=== PATIENT | male | born 1965 | race Caucasian/White ===

== ENCOUNTER 2019-05-01 00:33 | Day surgery (SDC) | payer BC, SELFPAY ==
[2019-04-24 15:08] VITALS: BMI 23.9
[2019-05-01 06:20] VITALS: BP 132/94; PULSE 79; RESP 18; O2SAT 97; BMI 21.9
[2019-05-01] MEDS: LACTATED RINGERS 1,000 ML 150 ML IV CONT (06:49)
--- NOTE | 2019-05-01 06:49 | P.PNAN_ITS ---
Anes - Initial Pre Proc Eval Procedure: Operation Date: 05/01/19 07:30 Proposed Procedures p Screening Colonoscopy - Monico Duetsch MD Date/Time: 05/01/19 06:49 Surgeon: Monico Deutsch MD Pre Op Diagnosis: neoplasm screening Patient Data Age: 54 Gender: M Height: 1.83 m Weight: 73.5 kg Last Vital Signs Pulse 79 05/01/19 06:20 Resp 18 05/01/19 06:20 BP 132/94 H 05/01/19 06:20 Pulse Ox 97 05/01/19 06:20 Allergies Allergy/AdvReac Type Severity Reaction Status Date / Time No Known Allergies Allergy Verified 05/01/19 06:30 Home Medications Medication Instructions Recorded Confirmed Type omeprazole magnesium [Prilosec OTC] 20 mg PO DAILY 04/24/19 05/01/19 History Patient hx anesthesia problems: none Family hx anesthesia problems: none [facility] Past Medical History Medical History (Updated 05/01/19 @ 06:49 by Bmial Herbert DO) GERD (gastroesophageal reflux disease) Surgical History Surgical History (Updated 04/30/19 @ 13:32 by Bimal Herbert DO) History of appendectomy Social History Social History Gender identity (if verbalized by the patient): Male Anes - Eval Final PreProcedure Day of Procedure 05/01/19 06:49 Patient weight: normal Heart: regular rate and rhythm Lungs: clear to auscultation and normal air movement Airway: Mallampati scale class II Neurological: alert and oriented Last oral intake: >/= 8 hours ASA classification: II Emergent: no Anesthetic plan: proceed Anesthesia type and monitoring: general GIVS and standard monitoring Informed Consent: The patient's anesthetic plan and its attendant risks and benefits were discussed with the patient/family/POA. Questions were solicited and answers provided to the satisfaction of the patient/family/POA.
--- NOTE | 2019-05-01 07:30 | WPDGICN ---
Assessment and Plan Additional Plan This is a 54-year-old white male patient seen in evaluation at the request of Dr. Hai Montelongo. Patient presents for screening colonoscopy. Patient's current weight appetite bowel movements are normal. He denies abdominal pain. His bowel habits are normal. He has no blood in his stools. Family history noncontributory. Past medical history is significant for GERD. His previous surgical appendectomy. Medications include omeprazole. No known medical allergies. Physical exam reveals patient to be alert. Vital signs stable. HEENT exam unremarkable. Lungs are clear to auscultation and percussion. Heart is without murmur or extra sounds. Abdominal exam bowel sounds are present soft nontender with no hepatosplenomegaly. Digital external rectal exam is normal. Impression 1. Neoplasia screening. Advised because of age. Plan is for screening colonoscopy GI Consult Note Consult date/time: 05/01/19 07:30 HPI: Eric Levine is a 54 year old male [facility] Past Medical History Medical History (Updated 05/01/19 @ 06:49 by Bimal Herbert DO) GERD (gastroesophageal reflux disease) Surgical History Surgical History (Updated 04/30/19 @ 13:32 by Bimal Herbert DO) History of appendectomy Social History Social History Gender identity (if verbalized by the patient): Male Meds Home Medications and Allergies Home Medications Medication Instructions Recorded Confirmed Type omeprazole magnesium [Prilosec OTC] 20 mg PO DAILY 04/24/19 05/01/19 History Allergies Allergy/AdvReac Type Severity Reaction Status Date / Time No Known Allergies Allergy Verified 05/01/19 06:30 Vital Signs Vital Signs - 24 hr 05/01/19 06:20 Pulse Rate 79 Respiratory Rate 18 Blood Pressure 132/94 H Pulse Oximetry 97
[2019-05-01] MEDS: SIMETHICONE ORAL SUSPENSION 20 MG/0.3 ML 30 ML BOTTLE 0.6 ML IRRIGATION (07:40)
[2019-05-01 07:59] VITALS: BP 137/96; PULSE 78; RESP 17; O2SAT 97
[2019-05-01 08:09] VITALS: BP 130/91; PULSE 77; RESP 18; O2SAT 95
[2019-05-01 08:19] VITALS: BP 141/91; PULSE 74; RESP 21; O2SAT 100
== END 2019-05-01 08:37 | disposition home or self-care (01) ==
PROVIDERS: PCP Family Medicine; Visit Provider Internal Medicine Gastroenterology
PROC: 0DJD8ZZ Inspection of Lower Intestinal Tract, Via Natural or Artificial Opening Endoscopic (ICD-10-PCS; CPT 45378; principal; 2019-05-01 07:30)
DX: Z12.11 Encounter for screening for malignant neoplasm of colon (principal); D12.4 Benign neoplasm of descending colon; D12.5 Benign neoplasm of sigmoid colon; D12.8 Benign neoplasm of rectum; K21.9 Gastro-esophageal reflux disease without esophagitis
CPT/HCPCS: 45385; 88305; J2704; J7120

== ENCOUNTER 2022-06-12 10:16 | Outpatient (CLI) | payer BC, SELFPAY ==
--- NOTE | ~2022-06-12 | XR_ITS ---
XR scoliosis survey DATE: 06/12/2022 10:47 INDICATION: Worsening back pain TECHNIQUE: AP and lateral views of the spine COMPARISON: None FINDINGS: There is 48 degrees levoscoliosis from T7 to T12. There is 45 degrees rotatory dextroscoliosis from T12 to L3. There is thoracic kyphosis. There is degenerative spurring of the thoracic and to a lesser extent lum bar spine. The femoral heads are symmetric in height.. Mild bilateral hip osteoarthritis. IMPRESSION: 48 degrees levoscoliosis from T7 to T12 45 degrees rotatory dextroscoliosis from T12 to L3 Reviewed, dictated and finalized at [facility]. Reviewed, dictated and finalized at location B.
[2022-06-12 10:56] LABS: Cholesterol 176 mg/dL (0-200); HDL Direct 61 mg/dL; Triglycerides 41 mg/dL (<150)
[2022-06-12 11:07] LABS: LDL Cholesterol Direct 86 mg/dL
== END 2022-06-12 10:17 | disposition home or self-care (01) ==
PROVIDERS: PCP Family Medicine; Visit Provider Family Medicine
DX: Z12.5 Encounter for screening for malignant neoplasm of prostate (principal); Z13.220 Encounter for screening for lipoid disorders; M41.84 Other forms of scoliosis, thoracic region
CPT/HCPCS: 36415; 72082; 80061; 84153; G0103

== ENCOUNTER 2023-01-31 14:04 | Outpatient (CLI) | payer BC, SELFPAY ==
--- NOTE | ~2023-01-31 | XR_ITS ---
XR_[id number] 01/31/2023 14:25 Indication: Right knee pain Procedure: 2 views right knee Comparison: No prior studies Findings: No fracture, subluxation or dislocation. There is mild patellofemoral compartment osteoarth ritis. No joint effusion. No foreign bodies. Impression: 1: Mild patellofemoral compartment osteoarthritis. Reviewed, dictated and finalized at location B. 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
--- NOTE | ~2023-01-31 | XR_ITS ---
XR_[id number] 01/31/2023 14:26 INDICATION: Left knee pain and swelling PROCEDURE: 2 views left knee COMPARISON: No prior studies for comparison. FINDINGS: Fracture, dislocation or subluxation is not identified. There is mild tricompartment osteoa rthritis. The soft tissues appear within normal limits. No foreign bodies are identified. IMPRESSION: 1: Mild tricompartment osteoarthritis. Reviewed, dictated and finalized at location B. OW PUMPER
== END 2023-01-31 14:05 | disposition home or self-care (01) ==
PROVIDERS: PCP Family Medicine; Visit Provider Nurse Practitioner Family
DX: M17.11 Unilateral primary osteoarthritis, right knee (principal); M17.12 Unilateral primary osteoarthritis, left knee; M25.561 Pain in right knee; M25.562 Pain in left knee
CPT/HCPCS: 73560

== ENCOUNTER 2023-06-18 07:36 | Outpatient (CLI) | payer BC, SELFPAY ==
--- NOTE | ~2023-06-18 | MR_ITS ---
EXAMINATION: MR knee LT wo con DATE: 06/18/2023 08:39 INDICATION: Left knee pain TECHNIQUE: Magnetic resonance imaging (MRI) of the left knee was performed without intravenous contra st. Sequences included coronal PD-weighted FSE, coronal PD-weighted FS FSE, sagittal T2-weighted FSE , sagittal PD-weighted FS FSE and axial PD weighted fat saturated FSE. COMPARISON: None. FINDINGS: Medial compartment: There is a complex tear of the medial meniscus with loss of meniscal tissue at the posterior body and posterior horn of the meniscus with secondary displaced meniscal flaps reflected anteriorly at the a nterior body and separate from the region of the posterior root. Subtle chondral surface irregularity and heterogeneous underlying signal at the central aspect of the medial tibial plateau. Shallow jose elias dral ulceration at the central aspect of the weightbearing medial femoral condyle. Lateral compartment: Lateral extrusion of the lateral meniscal body with complex tear at the anterior horn and body and wi th macerated appearance in the region of the posterior root. No deep chondral ulceration along the ce ntral to posterior aspect lateral tibial plateau. There is an irregular contour to the articular triston ex of the lateral tibial plateau which could be represent secondary central subchondral osteophytes o r sequela of old healed fracture. There is also some reticular edema-like marrow signal change along with suggestion of marrow reexpansion into prior underlying subchondral degenerative cystlike changes . Additional deep chondral ulceration along the lateral aspect of the central weightbearing lateral f emoral condyle with additional mild less than 50% chondral ulceration along the course of the anterio r and posterior weightbearing lateral femoral condyle. Patellofemoral compartment: Shallow chondral ulceration and/or fissuring at the caudal margin of the patella. Additional deep cho ndral fissuring at the inferolateral margin of the lateral trochlea. Ligaments and tendons: Complete tear of the anterior cruciate ligament which is draped across the intercondylar eminence the posterior cruciate ligament is normal. The medial collateral ligament and fibular collateral ligamen t complex are normal. Mild distal quadriceps tendinopathy. Patellar tendon is normal. The visualized medial and lateral hamstring tendons as well as the iliotibial band are normal. Fluid: Small left knee joint effusion. No loose osteochondral bodies identified. Moderate sized Lehman's cyst . Osseous/other: Bone alignment is normal. No acute fracture or pathologic marrow replacing process. IMPRESSION: 1. Complete tear of the anterior cruciate ligament. 2. Complex medial and lateral meniscal tears. 3. Tricompartmental osteoarthritis, moderate severity in the lateral compartment with extensive high- grade chondral malacia the lateral tibial plateau and mild with regions of moderate grade chondromala nii in the medial and patellofemoral compartments. 4. Small left knee joint effusion and moderate-sized Lehman's cyst. Reviewed, dictated and finalized at location A. IMPRESSION: 1. Complete tear of the anterior cruciate ligament. 2. Complex medial and lateral meniscal tears. 3. Tricompartmental osteoarthritis, moderate severity in the lateral compartmen t with extensive high-grade chondral malacia the lateral tibial plateau and mil d with regions of moderate grade chondromalacia in the medial and patellofemora l compartments. 4. Small left knee joint effusion and moderate-sized Lehman's cyst.
== END 2023-06-18 07:37 | disposition home or self-care (01) ==
PROVIDERS: PCP Family Medicine; Visit Provider Physician Assistant
DX: S83.272A Complex tear of lateral meniscus, current injury, left knee, initial encounter (principal); S83.232A Complex tear of medial meniscus, current injury, left knee, initial encounter; S83.512A Sprain of anterior cruciate ligament of left knee, initial encounter; M17.12 Unilateral primary osteoarthritis, left knee; M94.262 Chondromalacia, left knee; M25.462 Effusion, left knee; M71.22 Synovial cyst of popliteal space [Baker], left knee; X58.XXXA Exposure to other specified factors, initial encounter
CPT/HCPCS: 73721

== ENCOUNTER 2023-09-07 07:20 | Outpatient (CLI) | payer BC, SELFPAY ==
--- NOTE | ~2023-09-07 | XR_ITS ---
Left Knee Technique: AP, lateral, and sunrise views were obtained. Clinical History: Osteoarthritis Findings: No fracture or dislocation is seen. There is mild to moderate degenerative change of the la teral compartment.. Soft tissues are unremarkable. No joint effusion is seen. Impression: Mild to moderate degenerative change of the lateral compartment. Reviewed, dictated and finalized at location . Impression: Mild to moderate degenerative change of the lateral compartment.
== END 2023-09-07 07:21 | disposition home or self-care (01) ==
PROVIDERS: PCP Family Medicine; Visit Provider Orthopaedic Surgery
DX: M17.12 Unilateral primary osteoarthritis, left knee (principal)
CPT/HCPCS: 73564

== ENCOUNTER 2024-02-05 13:23 | Outpatient (CLI) | payer BC, SELFPAY ==
--- NOTE | ~2024-02-05 | XR_ITS ---
Clinical Indication: Tobacco use PA and lateral views of the chest: Comparison: 12/01/2016 Findings: The lungs are clear, without evidence of focal consolidation or pleural effusion. Cardiome diastinal silhouette is within normal limits. Bones and soft tissues are stable. Impression: Clear lungs. Reviewed, dictated and finalized at location . 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
--- NOTE | ~2024-02-05 | XR_ITS ---
Right foot Technique: AP, oblique, and lateral views were obtained. Clinical History: Heel pain Findings: No acute fracture or dislocation is seen. Osseous alignment is anatomic. Joint spaces are p reserved without erosive or degenerative change. Soft tissues are unremarkable. Impression: Unremarkable right foot radiographs. Reviewed, dictated and finalized at [facility]. WRITER Impression: Unremarkable right foot radiographs.
== END 2024-02-05 13:24 | disposition home or self-care (01) ==
PROVIDERS: PCP Family Medicine; Visit Provider Physician Assistant Medical
DX: M79.671 Pain in right foot (principal); R09.89 Other specified symptoms and signs involving the circulatory and respiratory systems; Z72.0 Tobacco use
CPT/HCPCS: 71046; 73630

== ENCOUNTER 2024-05-08 12:58 | Outpatient (CLI) | payer BC, SELFPAY ==
--- OUTSIDE RECORDS SUMMARY | 2024-05-08 14:30 | XMS_ITS | Referral Summary ---
Author Organization [facility] Address [address] [place] [address] Care Team Providers Care Microbiology Lab Manager Name Role Phone Anastacio Guido MD Primary Care Provider [phone] Allergies No known active allergies Medications traZODone (DESYREL) 50 mg tablet Take 1 tablet (50 mg total) by mouth nightly 07/06/2022 Active Active Problems Problem Noted Date Diagnosed Date Scar 10/01/2014 Social History Tobacco Use Types Packs/Day Years Used Date Smoking Tobacco: Every Day Cigarettes 0.5 30 Tobacco Cessation:Ready to Q uit: Not Asked; Counseling Given: Not Answered AUDIT-C Answer Date Recorded Q1: How often do you have a drink containing alc ohol? 2-3 times a week 12/06/2023 Q2: How many drinks containi ng alcohol do you have on a typical day when you are drinking? 1 or 2 12/06/2023 Frequency of Binge Drinking Not on file 11/26 Personal Safety Answer Date Recorded Have you ever been in or are you currently in a harmful physical or emotional relationship or is someone making you feel afraid or unsafe? 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 Gender Identity Male 11/07/2022 4:15 PM CDT Sexual Orientation Straight 11/07/2022 4: 15 PM CDT Last Filed Vital Signs Vital Sign Reading Time Taken Comments Blood Pressure 141/98 11/08/2022 9:17 AM CDT Pulse 67 11/08/2022 9:17 AM CDT Temperature 36.4 C (97.5 F) 11/08/2022 8:29 AM CDT Respiratory Rate 18 11/08/2022 9:17 AM CDT Oxygen Saturation 100% 11/08/2022 9:17 AM CDT Inhaled Oxygen Concentration - - Weight 70.8 kg (156 lb) 12/06/2023 8:49 AM CDT Height 175.3 cm (5' 9 ) 12/06/2023 8:49 AM CDT Body Mass Index 23.04 12/06/2023 8:49 AM CDT Plan of Treatment Not on file Insurance [employer] Care Teams Microbiology Lab Manager Relationship Specialty Start Date End Date Anastacio Guido MD PCP - General Family Medicine 09/01/22
--- OUTSIDE RECORDS SUMMARY | 2024-05-08 14:30 | XMS_ITS | Clinical Summary ---
Author Organization [facility] Address [facility]ly [facility], [facility] [place] [address] Care Team Providers Care Rn Hospital Name Role Phone Anastacio Guido MD Primary Care Provider Allergies No known active allergies Medications traZODone (DESYREL) 50 mg tablet Take 1 tablet (50 mg total) by mouth nightly 07/06/2022 Active Active Problems Problem Noted Date Diagnosed Date Scar 10/01/2014 Surgical History Surgery Date Site/Laterality Comments FOOT SURGERY Family History Medical History Relation Name Comments Kidney cancer Father Family history of malignant neoplasm of kidney - (Added by TW Conv) Relation Name Status Comments Father Social History Tobacco Use Types Packs/Day Years [...] on file 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 Gender Identity Male 11/07/2022 4:15 PM CDT Sexual Orientation Straight 11/07/2022 4: 15 PM CDT Obstetrics History Last Filed Vital Signs Vital Sign Reading [...] 12/06/2023 8:49 AM CDT Plan of Treatment Health Maintenance Due Date Last Done Comments Colon Cancer Screening-Colonoscopy 1963 Depression Screening 1963 Hepatitis C Screening 1963 Prostate Cancer Screening-PSA 1963 DTaP/Tdap/Td Vaccine (1 - Tdap) 1974 Hepatitis B Screening 1981 Regular Well Visit/Exam 18-64 1981 Pneumococcal vaccine <65 (1 of 2 - PCV) 1982 Zoster Vaccine (1 of 2) 2013 Covid-19 Vaccine (3 - season) 10/28/202302/2020, 03/29/2020 Influenza Vaccine (#1) 2023 Insurance [facility] Care Teams Rn Hospital Relationship Specialty Start Date End Date Anastacio Guido MD PCP - General Family Medicine 09/01/22
--- NOTE | 2024-05-09 11:28 | WPDPFTINT ---
PFT Procedure Performed PFT Procedure Performed Spirometry with Pre/Post Bronchodilator Plethysmography (Lung Vol) Diffusing Cap (DLCO) Flow Vol Loop PFT Interpretation Lung volumes were measured with the body plethysmography method. Lung volumes are unremarkable. Spirometry showed diminished expiratory flow rates and a diminished FEV1 to FVC ratio of 53%, consistent with obstructive airway disease. Following administration of a bronchodilator there was no significant increase in expiratory flow rates. Lung diffusion capacity is mildly reduced at 66% predicted. The flow-volume loop is consistent with obstructive airway disease. Impression: Mild obstructive airway disease with no response to bronchodilators on this testing. Mild reduction in lung diffusion capacity.
== END 2024-05-08 12:59 | disposition home or self-care (01) ==
PROVIDERS: PCP Family Medicine; Visit Provider Physician Assistant Medical
DX: R94.2 Abnormal results of pulmonary function studies (principal); J44.9 Chronic obstructive pulmonary disease, unspecified; Z72.0 Tobacco use
CPT/HCPCS: 94060; 94726; 94729

== ENCOUNTER 2024-12-09 08:24 | Emergency (ER) | payer BC, SELFPAY ==
[2024-12-09] VITALS (11 sets, daily range): BP systolic 130–177; BP diastolic 79–117; PULSE 66–98; RESP 12–27; TEMP 36.4–36.9; O2SAT 92–99
--- NOTE | ~2024-12-09 | XR_ITS ---
EXAMINATION: XR chest 1V portable COMPARISON: No comparisons available. HISTORY: stroke work up FINDINGS: Mild pulmonary venous congestion. No pneumothorax. Heart is normal size. Mediastinal and hilar contours are within normal limits. Levoconvex scoliosis of the spine. Miscellaneous: None Impression: No acute cardiopulmonary abnormality. Reviewed, dictated and finalized at location P. Impression: No acute cardiopulmonary abnormality.
--- NOTE | ~2024-12-09 | CT_ITS ---
EXAMINATION: CTA brain carotid DATE: 12/09/2024 09:02 INDICATION: Head injury. Left-sided weakness and paresthesias. TECHNIQUE: Computed tomographic angiography (CTA) of the head was performed with 100 mL Omnipaque-350 intravenous contrast. CTA of the neck was performed with intravenous contrast. Automated exposure control and iterative reconstruction technique were employed. The dose-length product was 1069.77 mGy-cm. Maximum intensity projection and volume rendered 3D-reconstructions were created by the technologist on a separate workstation. COMPARISON: Head CT 12/09/2024 FINDINGS: HEAD CTA: There is a fracture of the posterior superior skull with 6 mm depression. Gas in this area is epidural and in the scalp. There are scattered areas of low attenuation in the cerebral white matter, which is within normal limits for the patient's age. There is no intracranial hemorrhage, acute i nfarction, or abnormal intracranial mass lesion. The ventricles are normal in size. The orbits are normal. There is mucosal thickening in the paranasal sinuses. The mastoid air cells are normal. There is multifocal venous gas, likely from IV injection. The vertebral arteries are codominant. There is no significant stenosis of basilar artery or the posterior cerebral arteries. There is no significant stenosis of the intracranial internal carotid arteries or anterior or middle cerebral arteries. Anterior communicating artery is normal. The posterior communicating arteries are normal. There is no aneurysm. NECK CTA: Emphysema is noted. There is mild scarring at the lung apices. There are no pathologically enlarged lymph nodes. There is no significant stenosis of the vertebral arteries. There is plaque in the proximal internal carotid arteries. There is 0% stenosis of the proximal right internal carotid artery relative to normal distal artery lumen diameter (NASCET criteria). There is 0% stenosis of the proximal left internal carotid artery relative to normal distal artery lumen diameter. There is severe cervical spondylosis. There is mild chronic anterior wedging of multiple thoracic vertebral bodies. IMPRESSION: 1. Fracture of the posterior superior skull with 6 mm depression. 2. Normal aging brain. 3. No aneurysm or significant intracranial arterial stenosis. 4. 0% stenosis of the proximal internal carotid arteries relative to normal distal artery lumen diameters (NASCET criteria). Reviewed, dictated and finalized at location E. IMPRESSION: 1. Fracture of the posterior superior skull with 6 mm depression. 2. Normal aging brain. 3. No aneurysm or significant intracranial arterial stenosis. 4. 0% stenosis of the proximal internal carotid arteries relative to normal dis carmina artery lumen diameters (NASCET criteria).
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
--- OUTSIDE RECORDS SUMMARY | 2024-12-09 08:42 | XMS_ITS | Clinical Summary ---
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
--- NOTE | 2024-12-09 08:43 | ECG_ITS ---
Test Date: 2024-12-09 09:03:45 Measurements Intervals Huger Rate: 89 P: 73 IL: 197 QRS: 75 QRSD: 94 T: 56 QT: 356 QTc: 435 Interpretive Statements SINUS RHYTHM POSSIBLE LEFT ATRIAL ENLARGEMENT CANNOT R/O SEPTAL INFARCT, AGE INDETERMINATE BASELINE ARTIFACT- I, III, AVL ABNORMAL ECG No previous ECG available for comparison Electronically Signed On 12-09-2024 09:21:37 CDT by Rick Carrasco D.O.
--- NOTE | 2024-12-09 08:48 | PC.NURSE ---
bs 80
[2024-12-09 08:59] LABS: Hematocrit 46.1 % (42.0-52.0); Hemoglobin 16.0 g/dL (14.0-18.0); Immature Granulocyte Percent A 0.4 % (0-0.5); Lymphocytes Absolute Auto 2.32 K/mm3 (0.9-3.2); Mean Corpuscular HGB Conc 34.7 g/dl (32-36); Mean Corpuscular Hemoglobin 33.9 pg (26-34); Mean Corpuscular Volume 97.7 fl (80-100); Nucleated Red Blood Cells Absolute Auto 0.000 K/mm3 (0.0-0.012); Nucleated Red Blood Cells Perc 0.0 % (0.0-0.2); Platelet Count Result 266 k/mm3 (150-375); Red Blood Count 4.72 M/mm3 (4.6-6.20); White Blood Count 8.0 K/mm3 (4.5-10.0)
[2024-12-09 09:10] LABS: Alanine Aminotransferase 44 U/L (6-50); Albumin Level 4.3 g/dL (3.5-5.1); Alkaline Phosphatase 96 U/L (38-126); Anion Gap 10 mmol/L (4-12); Aspartate Amino Transferase 39 U/L (17-59); Bilirubin,Total 0.6 mg/dL (0.2-1.3); Blood Urea Nitrogen 21 mg/dL (9-20); Calcium 9.0 mg/dL (8.4-10.2); Carbon Dioxide 22 mmol/L (22-30); Chloride 105 mmol/L (98-107); Estimated CRCL calculation 83 ml/min; Estimated Glomerular Filt Rate > 60; Glucose 118 mg/dL (65-110); Potassium 3.8 mmol/L (3.4-5.0); Sodium 137 mmol/L (137-145); Total Protein 8.0 g/dL (6.3-8.2)
[2024-12-09 09:11] LABS: INR 1.0; Partial Thromboplastin Time 25.4 Seconds (22.3-36.8); Prothrombin Time 13.0 Seconds (11.1-14.7)
[2024-12-09 09:22] LABS: Troponin I < 0.012 ng/mL (0.000-0.034)
--- NOTE | 2024-12-09 09:25 | ED_ITS ---
HPI - Neuro Symptoms/Deficit General Chief Complaint: Wound/Laceration Stated Complaint: head lac Time Seen by Provider: 12/09/24 08:45 Source: patient and family Mode of arrival: ambulatory Limitations: no limitations History of Present Illness HPI Narrative: [id number] Patient presents with a head laceration that occurred at approximately a 3:00 p.m.. He had been standing behind a trailer when an object, possibly a tarp panel fell off struck him in the head. He denies losing consciousness but does state that the injury did cause him to fall to the ground. Patient had oxygen placed by nursing staff and when doing so he had described a gurgling sensation in his bilateral ears. Oxygen was placed because he became diaphoretic with a pulse ox reading 88% on room air. I was called to the room at this time given patient was having numbness and tingling all over. At the time of my exam he was unable to move his left arm or leg. Nursing staff had reported that he had been unable to move the right side around the same time period. He has facial asymmetry with mild loss of the nasolabial fold at the time of my exam. Patient is not on anticoagulation. He reports that his tetanus is up-to-date. He does not typically wear oxygen at baseline. At the time of my repeat assessment of the patient, he reports his pain is 2/10 in severity. Patient denies any rhinorrhea other than some mild nasal drainage/congestion when the nasal cannula prongs were inserted. Related Data Allergies Allergy/AdvReac Type Severity Reaction Status Date / Time No Known Allergies Allergy Verified 12/09/24 08:26 [facility] Past Medical History Medical History Right hand dominant Primary osteoarthritis of left knee Screening for prostate cancer Screening for lipid disorders Scoliosis Chest congestion GERD (gastroesophageal reflux disease) Surgical History Surgical History History of appendectomy Family History Family History Father Cancer Mother Heart disease Sibling No problems noted. Sibling Heart disease Other FH: kidney cancer Hypertension Liver cancer Social History Social History Smoking packs per day: 1 Smoking cigarettes per day: 20.0 Smoking status: Current every day smoker Tobacco type: cigarettes (Pt is using taper method) Second hand tobacco smoke exposure: Yes Alcohol intake: current Drinks per week: 21 Alcohol use details: Beer Substance use: never Substance use type: does not use Do You Feel Safe in your Home?: Yes Lack of Transportation: No Lack of Food: Never True Current Housing: I Have Housing Concerned About Future Housing: No Difficulty Paying Gas/Electric Bills: No Difficulty Paying for Meds: No Currently Unemployed: YES Education: Trade/Vocational Certificate Difficulty w/ Childcare or Family Care: No Living arrangements: alone Additional living arrangements comments: Pt is a . 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 HEAD: Superior/posterior head laceration, bleeding but controlled with pressure; trauma. EYES: Non injected, non icteric. Visual suárez intact. Horizontal extraocular movements intact without entrapment or nystagmus. ENT: Nares clear, no rhinorrhea or epistaxis. Gross auditory acuity intact. No hemotympanum. NECK: Supple. No meningismus. No tenderness to palpation cervical spine for which there is no bony step-offs or obvious deformity. CHEST: Speaking in full sentences. No respiratory distress. HEART: Regular rate and rhythm. . ABDOMEN: Soft, nondistended. No rigidity or guarding. Not peritoneal EXTREMITIES: Normal range of motion. No lower extremity edema. SKIN: Warm, dry. Wound as above. NEURO: Alert and oriented. Answering questions. Following commands. Normal speech without aphasia or dysarthria. Mild right arm motor drift. No motor drift in other extremities x3. Sensation intact throughout. No extinction. PSYCH: Normal mood and affect. Course Vital Signs Vital signs: Vital Signs Temperature 98.5 F 12/09/24 08:28 Pulse Rate 73 12/09/24 08:28 Respiratory Rate 16 12/09/24 08:28 Blood Pressure 177/86 H 12/09/24 08:28 Pulse Oximetry 99 12/09/24 08:28 Temperature 97.6 F 12/09/24 08:30 Pulse Rate 66 12/09/24 11:00 Respiratory Rate 12 12/09/24 11:00 Blood Pressure 139/87 12/09/24 11:00 Pulse Oximetry 94 12/09/24 11:00 Oxygen Delivery Room Air 12/09/24 10:21 Oxygen Flow Rate 2 12/09/24 08:40 MDM - Neuro Symptoms/Deficit MDM Narrative Medical decision making narrative: This is a 59 year old male who presents to the emergency department with concern for possible intracranial hemorrhage. Last known well is 8:15am. The patient is protecting their airway which is patent. In the emergency department he is afebrile with vital signs notable for hypertension. An IV is established by nursing staff blood work sent to the lab for evaluation. An EKG will be performed. Accu-Chek was 80mg/dL. NIHSS was evaluated per below. The patient was transported immediately to CT scan per stroke protocol for evaluation of acute intracranial bleed. On my initial assessment of patient, he has loss of the nasolabial fold, mild on the left. He is also not moving the left side of his body. However, RN had reported that he had been having difficulties on the right side and he reports he has intermittently had this on both. Tetanus up to date, not on anticoagulation. NIHSS upon return from CT scan = Level Of consciousness: 0 Month and age:0 Follows commands:0 Gaze palsy:0 Visual suárez:0 Facial palsy:0 Left arm motor drift:0 Right arm motor drift: 1 Left leg motor drift: 0 Right leg motor drift:0 Limb ataxia: 0 Sensation: 0 Aphasia:0 Dysarthria:0 Extinction:0 Total: 1 DIFFERENTIAL DIAGNOSES Intracranial hemorrhage; skull fracture. Also Considered Stroke (CVA / TIA) and mimics including but not limited to: migraines, hypoglycemia, seizures/Rufino's paralysis, sepsis/severe infections in patients with prior strokes (e.g. recrudescence), syncope, brain masses, transient global amnesia, panic attack/hyperventilation, and conversion disorders. CT per stroke protocol shows: Depressed skull fracture with pneumocephalus. Patient had been complaining of neck pain. No tenderness to palpation and the cervical spine is without bony step-offs or obvious deformity. He notes a chronic history of neck pain, attributed to scoliosis. Did confirm with CT that in the brain/carotid study there were bone windows. Chart review performed which demonstrates: Relatively straightforward PMH without significant comorbidities. Labs: Normal troponin. INR 1.0. UDS negative. Has previously received care through [facility]. Spoke with [facility] multi share program coordinator personnel. Based on age >55, he is a geriatric trauma. Spoke with ED attending physician Dr Marvel Glover. Asked about antibiotics and seizure prophylaxis; give Keflex. Can hold off on seizure prophylaxis. Level 2 trauma. Wound was irrigated at bedside by myself but without significant debridement. Wound then covered with dressing and asked RN to apply Kerlex to hold in place. Will arrange EMS transportation, ALS in case patient seizes. Urinalysis with microscopic hematuria and abnormal specific gravity but otherwise without marked signs of infection. Lab Data Attestation: I reviewed the patient's lab results. Lab results narrative: Chemistry with normal renal function no marked electrolyte abnormalities. CBC without marked abnormalities. 12/09/24 08:47 12/09/24 08:47 Labs: Lab Results 12/09/24 12/09/24 Range/Units 08:47 10:03 WBC 8.0 (4.5-10.0) K/mm3 RBC 4.72 (4.6-6.20) M/mm3 Hgb 16.0 (14.0-18.0) g/dL Hct 46.1 (42.0-52.0) % MCV 97.7 (80-100) fl MCH 33.9 (26-34) pg MCHC 34.7 (32-36) g/dl RDW 13.0 (11.5-14.5) % Plt Count 266 (150-375) k/mm3 MPV 8.7 (7.4-10.4) fl Immature Gran % (Auto) 0.4 (0-0.5) % Neut % (Auto) 54.7 (45.5-73.1) % Lymph % (Auto) 29.1 (18.3-44.2) % [place] % (Auto) 11.9 H (2.6-8.5) % Eos % (Auto) 3.4 (0-4.4) % Baso % (Auto) 0.5 (0.2-1.2) % Lymph # (Auto) 2.32 (0.9-3.2) K/mm3 [place] # (Auto) 1.0 H (0.1-0.6) K/mm3 Eos # (Auto) 0.3 (0-0.3) K/mm3 Baso # (Auto) 0.0 (0.0-0.1) K/mm3 Abs Immat Gran (auto) 0.03 (0.00-0.031) K/mm3 Absolute Neuts (auto) 4.4 (1.3-6.7) K/mm3 Absolute Nucleated RBC 0.000 (0.0-0.012) K/mm3 Nucleated RBC % 0.0 (0.0-0.2) % PT 13.0 (11.1-14.7) Seconds INR 1.0 APTT 25.4 (22.3-36.8) Seconds Sodium 137 (137-145) mmol/L Potassium 3.8 (3.4-5.0) mmol/L Chloride 105 (98-107) mmol/L Carbon Dioxide 22 (22-30) mmol/L Anion Gap 10 (4-12) mmol/L BUN 21 H (9-20) mg/dL Creatinine 0.70 (0.7-1.3) mg/dL Estim Creat Clear Calc 83 ml/min Estimated GFR > 60 (59 - ) Glucose 118 H (65-110) mg/dL POC Capillary Glucose 80 (65-105) mg/dl Calcium 9.0 (8.4-10.2) mg/dL Total Bilirubin 0.6 (0.2-1.3) mg/dL AST 39 (17-59) U/L ALT 44 (6-50) U/L Alkaline Phosphatase 96 (38-126) U/L Troponin I < 0.012 (0.000-0.034) ng/mL Total Protein 8.0 (6.3-8.2) g/dL Albumin 4.3 (3.5-5.1) g/dL Urine Color Yellow (Yellow) Urine Appearance Clear (Clear) Urine pH 6.0 (5.0-9.0) Ur Specific [place] 1.041 H (1.001-1.035) Urine Protein Negative (Negative) mg/dL Urine Glucose (UA) Negative (Negative) mg/dL Urine Ketones Negative (Negative) mg/dL Ur Blood (Man) Trace (Negative) Urine Nitrate Negative (Negative) Urine Bilirubin Negative (Negative) Urine Urobilinogen 0.2 (<2.0) mg/dL Leukocyte Esterase Rfl Negative (Negative) CORRY/UL Urine RBC 3-5 H (0-2) /hpf Urine WBC 0-5 (0-3) /hpf Ur Squamous Epith Cells None seen (Few) /hpf Urine Bacteria None seen /hpf Urine Casts 0-2 Urine Opiates Screen Negative (Negative) Urine Methadone Screen Negative (Negative) Ur Barbiturates Screen Negative (Negative) Ur Phencyclidine Scrn Negative (Negative) Ur Amphetamine Screen Negative (Negative) U Benzodiazepines Scrn Negative (Negative) Urine Cocaine Screen Negative (Negative) U Cannabinoids Screen Negative (Negative) Ethyl Alcohol < 10 (<10) mg/dL Imaging Data Radiologist's impression: Impressions Head CT 12/09/24 08:59 IMPRESSION: 1. Focal depressed skull fracture central parietal vertex. Tiny focal associated pneumocephalus. 2. Small gas locules along distal left vertebral artery, 1 or 2 locules possibly within artery. 3. Small gas locules within cavernous sinus. 4. No intracerebral hemorrhage. Head/Neck CTA 12/09/24 09:06 IMPRESSION: 1. Fracture of the posterior superior skull with 6 mm depression. 2. Normal aging brain. 3. No aneurysm or significant intracranial arterial stenosis. 4. 0% stenosis of the proximal internal carotid arteries relative to normal distal artery lumen diameters (NASCET criteria). Chest X-Ray 12/09/24 09:18 Impression: No acute cardiopulmonary abnormality. ECG Data EKG #1: Attestation: I personally reviewed and interpreted this ECG as follows: ECG completion date: 12/09/24 ECG completion time: 09:03 Interpretation: Normal sinus rhythm at a rate of 89 beats per minute. KS interval 197. QRS 94. QT/QTC 356/435. Good R-wave progression across the precordial leads. No T- wave inversion. Discharge Plan Discharge Clinical Impression: Depressed fracture of skull, Pneumocephalus, traumatic, Head injury due to trauma Patient Disposition: Acute Care Hospital Condition: Stable Patient Language: Lithuanian Prescriptions: No Action azithromycin [Zithromax] 250 mg tablet See Rx Instructions PO .COMPLEX Qty: 6 0RF Rx Instructions: take 500 mg today (day 1), then 250 mg for 4 days (days 2-5) PO albuterol sulfate 90 mcg/actuation HFA aerosol inhaler 1 inh inhalation Q4H PRN (Reason: shortness of breath or wheezing) Qty: 6.7 3RF sildenafil 50 mg tablet 50 mg PO DAILY PRN (Reason: sexual activity) Qty: 90 0RF Rx Instructions: administer 30 minutes to 4 hours before activity Trelegy Ellipta 100-62.5-25 mcg blister with device 1 inh inhalation DAILY Qty: 28 0RF Rx Instructions: sample trazodone 50 mg tablet 50 mg PO .qhs Qty: 30 2RF Follow-up/Referrals: Anastacio Guido MD [Primary Care Provider, Family Practice] Time of Disposition: 10:03
[2024-12-09] MEDS: HYDROcodone/acetaminophen (*CRX) 5-325 MG TABLET 1 TAB PO (10:17)
[2024-12-09] MEDS: CEPHALEXIN 500 MG CAPSULE PO (10:18)
[2024-12-09 10:31] LABS: Add Urine Microscopic? YES; Appearance Urine Clear (Clear); Cannabinoid Screen Urine Negative (Negative); Glucose Urine UA Negative (Negative); Leukocyte Esterase Ur Negative LEU/UL (Negative); Nitrate Urine Negative (Negative); Non Pathogenic Casts 0-2; Specific Grav Ur 1.041 (1.001-1.035)
--- OUTSIDE RECORDS SUMMARY | 2024-12-09 10:58 | XMS_ITS | Encounter Summary ---
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
--- OUTSIDE RECORDS SUMMARY | 2024-12-09 10:59 | XMS_ITS | Clinical Summary ---
Author Organization [facility] Address [address] [place] [address] Care Team Providers Care Pipe Fittings Molder Name Role Phone Anastacio Guido MD Primary Care Provider [phone] Allergies No known active allergies Medications traZODone (DESYREL) 50 mg tablet Take 1 tablet (50 mg total) by mouth nightly 07/06/2022 Active Active Problems Problem Noted Date Diagnosed Date Scar 10/01/2014 Encounters Date Type Department Care Team Description 12/09/2024 Emergency [facility] Emergency Department [address] [place] [address] from Last 3 Months Surgical History Surgery Date Site/Laterality Comments FOOT [...] on file 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
== END 2024-12-09 11:27 | disposition short-term general hospital (02) ==
PROVIDERS: Emergency Provider Student in an Organized Health Care Education/Training Program; PCP Family Medicine
DX: S02.0XXA Fracture of vault of skull, initial encounter for closed fracture (principal); G93.89 Other specified disorders of brain; S06.890A Other specified intracranial injury without loss of consciousness, initial encounter; M17.12 Unilateral primary osteoarthritis, left knee; K21.9 Gastro-esophageal reflux disease without esophagitis; F17.200 Nicotine dependence, unspecified, uncomplicated; R94.31 Abnormal electrocardiogram [ECG] [EKG]; W20.8XXA Other cause of strike by thrown, projected or falling object, initial encounter
CPT/HCPCS: 36415; 70450; 70496; 70498; 71045; 80053; 80307; 81001; 82077; 82948; 84484; 85025; 85610; 85730; 93005; 99285; A9270; Q9967

== ENCOUNTER 2024-12-25 12:07 | Outpatient (CLI) | payer BC, SELFPAY ==
[2024-12-25 12:22] LABS: Hematocrit 42.5 % (42.0-52.0); Hemoglobin 14.5 g/dL (14.0-18.0); Immature Granulocyte Percent A 0.4 % (0-0.5); Lymphocytes Absolute Auto 2.15 K/mm3 (0.9-3.2); Mean Corpuscular HGB Conc 34.1 g/dl (32-36); Mean Corpuscular Hemoglobin 34.0 pg (26-34); Mean Corpuscular Volume 99.8 fl (80-100); Nucleated Red Blood Cells Absolute Auto 0.000 K/mm3 (0.0-0.012); Nucleated Red Blood Cells Perc 0.0 % (0.0-0.2); Platelet Count Result 341 k/mm3 (150-375); Red Blood Count 4.26 M/mm3 (4.6-6.20); White Blood Count 7.9 K/mm3 (4.5-10.0)
--- OUTSIDE RECORDS SUMMARY | 2024-12-25 12:59 | XMS_ITS | Clinical Summary ---
Author Organization [facility] Address [address] [place] [address] Care Team Providers Care Pain Management Physician Name Role Phone Anastacio Guido MD Primary Care Provider + [phone] Allergies No known active allergies Medications traZODone (DESYREL) 50 mg tablet Take 1 tablet (50 mg total) by mouth nightly 3 Active acetaminophen 500 mg capsuleIndicati ons:Pain Take 2 capsules (1,000 mg total) by mouth every 6 (six) hours 5 Active oxyCODONE (ROXICODONE) 5 mg immediate release tabletIndicatio ns:Pain Take 1 tablet (5 mg total) by mouth every 4 (four) hours as needed for pain 15 tablet 5 Active albuterol HFA (PROVENTIL HFA,VENTOLIN HFA,PROAIR HFA) 90 mcg/actuation inhaler Inhale 4 Active docusate sodium (COLACE) 100 mg capsuleIndicati ons:constipatio n,Stool Softener Take 1 capsule (100 mg total) by mouth 2 (two) times a day 5 12/24/19 25 Discontinu ed(Patient Reported) Active Problems Problem Noted Date Diagnosed Date Skull fracture 12/09/2024 Scar 10/01/2014 Encounters Date Type Department Care Team Description 12/23/2024 8:00 AM CDT Office Visit [facility] ([facility]) - [facility] Medicine ENT [address] [place] [address] [place] [address] Won Gross MD Laceration of scalp, initial encounter (Primary Dx); Skull fracture (HCC); Facial pain 12/16/2024 Orders Only [facility] with [facility] [address] [place] [address] Loyda Villalpando PA Skull fracture (HCC) (Primary Dx); Open depressed fracture of skull, initial encounter (HCC) 12/15/2024 Telephone [facility] Medicine Scheduling [address] [place] [address] Shama Martinez 12/09/2024 11:52 AM CDT - 12/10/2024 4:46 PM CDT Hospital Encounter [facility] [address] [place] [address] Marvel Glover MD Stickles, Sean Patrick, MD Dowling, Joshua L., MD Open depressed fracture of skull, initial encounter (HCC) (Primary Dx); Skull fracture (HCC) Discharge Disposition: Discharge to home or self care from Last 3 Months Immunizations Immunization Administration Dates Next Due Tdap 12/09/2024(Deferred: Other - pt up to date) Surgical History Surgery Date Site/Laterality Comments FOOT SURGERY Family History Medical History Relation Name Comments Kidney cancer Father Family history of malignant neoplasm of kidney - (Added by TW Conv) Relation Name Status Comments Father Alive Social History Tobacco Use Types Packs/Day Years [...] making you feel afraid or unsafe? Denies 12/09/2024 Sex and Gender Information Value Date Recorded Sex Assigned at Not on file Legal Sex Male 7:52 PM [employer] Gender Identity Male 11/07/2022 4:15 PM CDT Sexual Orientation Straight 11/07/2022 4: 15 PM CDT Obstetrics History Last Filed Vital Signs Vital Sign Reading Time Taken Comments Blood Pressure 168/74 12/23/2024 7:55 AM CDT Pulse 67 12/23/2024 7:55 AM CDT Temperature 36.7 C (98.1 F) 12/10/2024 2:45 AM CDT Respiratory Rate 14 12/10/2024 11:04 AM CDT Oxygen Saturation 96% 12/10/2024 10:20 AM CDT Inhaled Oxygen Concentration - - Weight 72.6 kg (160 lb) 12/23/2024 7:55 AM CDT Height 175.3 cm (5' 9) 12/23/2024 7:55 AM CDT Body Mass Index 23.63 12/23/2024 7:55 AM CDT Plan of Treatment Health Maintenance Due Date Last Done Comments Colon Cancer Screening-Colonoscopy 1963 Depression Screening 1963 Hepatitis C Screening 1963 Prostate Cancer Screening-PSA 1963 Hepatitis B Screening 1981 Regular Well Visit/Exam 18-64 1981 Pneumococcal vaccine <65 (1 of 2 - PCV) 1982 Zoster Vaccine (1 of 2) 2013 Covid-19 Vaccine (3 - season) 10/27/202402/2020, 03/29/2020 Influenza Vaccine (#1) 2024 DTaP/Tdap/Td Vaccine (2 - Td or Tdap) 08/20/2033 Procedures Procedure Name Priority Date/Time Associated Diagnosis Comments EGFR Routine 12/10/2024 2:43 AM CDT BASIC METABOLIC PANEL Routine 12/10/2024 2:43 AM CDT CTA HEAD VENOGRAM W WO CONTRAST ED 12/09/2024 2:44 PM CDT POCT CREATININE - DEVICE Routine 025 1:[address] HEAD WO CONTRAST ED 12/09/2024 1 :00 PM CDT B CHECK SAMPLE STAT 12/09/2024 12:57 PM CDT BLOOD CULTURE STAT 12/09/2024 12:57 PM CDT BLOOD CULTURE STAT 12/09/2024 12:57 PM CDT [facility] C[facility] ILL/INJURED PATIENT INIT 30-74 MIN Routine 12/09/2024 12:03 PM CDT POC BLOOD GAS AND CHEMISTRIES, VENOUS Routine 12/09/2024 11:59 AM CDT COMPREHENSIVE METABOLIC PANEL Routine 12/09/2024 11:58 AM CDT EGFR Routine 12/09/2024 11:58 AM CDT ERYTHROCYTE SEDIMENTATION RATE Routine 12/09/2024 11:58 AM CDT THROMBOELASTOMETRY PANEL - INTRINSIC Routine 12/09/2024 11:58 AM CDT THROMBOELASTOMETRY PANEL - HEPARIN Routine 12/09/2024 11:58 AM CDT THROMBOELASTOMETRY PANEL - EXTRINSIC Routine 12/09/2024 11:58 AM CDT THROMBOELASTOMETRY PANEL - FIBRINOGEN Routine 12/09/2024 11:58 AM CDT CRP (ACUTE PHASE) Routine 12/09/2024 11: 58 AM CDT DIFFERENTIAL AUTO Routine 12/09/2024 11: 58 AM CDT THROMBOELASTOMETRY PANEL Routine 025 11:58 AM CDT PROTIME-INR Routine 12/09/2024 11:58 AM CDT APTT Routine 12/09/2024 11:58 AM CDT ETHANOL Routine 12/09/2024 11:58 AM CDT CBC WITH AUTO DIFFERENTIAL Routine 12/09 11:58 AM CDT TYPE AND SCREEN Timed 12/09/2024 11:58 AM CDT from Last 3 Months Results * eGFR (12/10/2024 2:43 AM CDT) eGFR >90 >=60 mL/min/1. 73 m2 Comment: Interpretive Data Reference Interval Normal >/= 90 mL/min/1.73m2 Mildly decreased* 60 - 89 mL/min/1.73m2 Mildly to moderately decreased 45 - 59 mL/min/1.73m2 Moderately to severely decreased 30 - 44 mL/min/1.73m2 Severely decreased 15 - 29 mL/min/1.73m2 Kidney Failure < 15 mL/min/1.73m2 *Relative to young adult level Estimated glomerular filtration rate is determined by the 2020 CKD-EPI equation recommended by the National Kidney Foundation (A Unifying Approach to GFR Estimation: Recommendations of the NKF-ASK Task Force on Reassessing the Inclusion of Race in Diagnosing Kidney Disease, JASN 202). The CKD-EPI equation should not be used for patients with unstable renal function and has not been validated in children and those over 70. Current interpretive data was last reviewed 2020. Blood 12/10/2024 2:43 AM CDT 12/10/2024 2:54 AM CDT us Forrest Mcconnell MD LAB BLOOD ORDERABLES Final Result [facility] Department [place] [address] * (ABNORMAL) Basic metabolic panel (12/10/2024 2:43 AM CDT) Sodium 138 135 - 145 mmol/L Potassium, pl 3.7 3.3 - 4.9 mmol/L [facility] Comment:Hemolyzed; Potassium value may be falsely elevated by as much as 0.3-0.5 mmol/L. Suggest redraw and reanalysis. Chloride 109 97 - 110 mmol/L [facility] CO2 21(L) 22 - 32 mmol/L [facility] Anion gap 8 2 - 15 mmol/L [facility] BUN 14 6 - 25 mg/dL [facility] Creatinine 0.67(L) 0.80 - 1.30 mg/dL [facility] Glucose 97 70 - 199 mg/dL [facility] Comment: Interpretive Data Fasting glucose >/= 126 mg/dl is diagnostic for diabetes. Fasting is defined as no caloric intake for at least 8 hours. Fasting glucose between 100 mg/dl to 125 mg/dl is diagnostic of prediabetes. In a patient with classic symptoms of hyperglycemia or hyperglycemic crisis, a random glucose >/= 200 mg/dl is diagnostic for diabetes. In the absence of unequivocal hyperglycemia, results should be confirmed by repeat testing. The classification and Diagnosis of Diabetes Diabetes Care 202; 46: S19-S40. Current interpretive data was last revised 2022. Calcium 7.6(L) 8.5 - 10.3 mg/dL [facility] Blood 12/10/2024 2:43 AM CDT 12/10/2024 2:54 AM CDT us Forrest Mcconnell MD LAB BLOOD ORDERABLES Final Result [facility] Department [place] [address] * CTA Head Venogram W WO Contrast (12/09/2024 2:44 PM CDT) Anatomical Region Laterality Modality Head and Neck N/A Computed Tomogra phy 12/09/2024 3:21 PM CDT Impressions 12/09/2024 3:24 PM CDT 1. Redemonstrated comminuted depressed skull fracture the vertex involving the bilateral parietal bones with intracranial displacement approximately 6 mm. Unchanged subdural blood products tracking along the falx. 2. Normal CT angiogram of the head. 3. Inferior displacement and mass effect of the superior sagittal sinus at the level the fracture fragments resulting in focal severe stenosis with extraaxial blood products causing external compression anterior and posterior to the fragments, however no filling defect to suggest dural venous thrombus. Dictated by: Loyda Macias MD The radiology attending physician has personally reviewed this study, and had reviewed and/or edited this written report and agrees with it. Electronically signed by: Adrian Wilder M.D. Narrative 12/09/2024 3:24 PM CDT EXAMINATION: Computed tomography angiography/venography (CTA/CTV) of the head without and with contrast HISTORY: 59-year-old male with blunt trauma to posterior skull with depressed skull fracture, concern for associated dural venous sinus thrombosis TECHNIQUE: CT of the head was performed with images acquired from skull base to vertex without intravenous contrast. Computed tomographic angiography was obtained from the skull base to the vertex following the uneventful administration of intravenous contrast. 3D images of the CTA were generated on a dedicated workstation/windows server architect. Venous phase delayed CT of the head was then performed with images acquired from skull base to vertex. Contrast information: 69 mL Optiray-350 IV COMPARISON: Head CT 12/09/2024 12:55 PM FINDINGS: HEAD: Redemonstrated comminuted calvarial fracture at the vertex near midline extending along the sagittal suture involving the bilateral parietal bones, with depressed fracture fragments extending intracranially approximately 6 mm, unchanged from earlier same day head CT. Overlying soft tissue hematoma is similar to prior exam. Demonstrated trace subdural blood products tracking primarily along the anterior and posterior falx, trace residual pneumocephalus. Ventricles are of normal size and morphology. No midline shift present. The hernandez-white matter differentiation is normal. The visualized portions of the orbits are normal. The visualized portions of the mastoids are normal. Mucus retention cyst of left maxillary sinus. No additional fractures identified. CTA: The visualized course and caliber of the internal carotid arteries in the head are normal. No areas of atherosclerotic narrowing or filling defects are identified. The anterior and middle cerebral arteries are normal. The vertebral arteries are codominant. The basilar artery is normal. The posterior cerebral arteries are normal. There is no aneurysm or vascular malformation identified. CTV: On the delayed venous images, contrast is seen within the superior sagittal, straight, transverse, and sigmoid sinuses. There is mass effect on the superior sagittal sinus from the depressed skull fracture fragments resulting in severe focal stenosis and inferior displacement, with stenosis extending anteriorly and posteriorly from the fragments as well, where there are small foci of extraaxial blood products causing external compression (series 24 image 84, series 10 image 30). The jugular veins, internal cerebral veins, and vein of Alex are normal. No luminal filling defects are seen. Procedure Note Adrian Wilder MD - 12/09/2024 EXAMINATION: Computed tomography angiography/venography (CTA/CTV) of the head without and with contrast HISTORY: 59-year-old male with blunt trauma to posterior skull with depressed skull fracture, concern for associated dural venous sinus thrombosis TECHNIQUE: CT of the head was performed with images acquired from skull base to vertex without intravenous contrast. Computed tomographic angiography was obtained from the skull base to the vertex following the uneventful administration of intravenous contrast. 3D images of the CTA were generated on a dedicated workstation/windows server architect. Venous phase delayed CT of the head was then performed with images acquired from skull base to vertex. Contrast information: 69 mL Optiray-350 IV COMPARISON: Head CT 12/09/2024 12:55 PM FINDINGS: HEAD: Redemonstrated comminuted calvarial fracture at the vertex near midline extending along the sagittal suture involving the bilateral parietal bones, with depressed fracture fragments extending intracranially approximately 6 mm, unchanged from earlier same day head CT. Overlying soft tissue hematoma is similar to prior exam. Demonstrated trace subdural blood products tracking primarily along the anterior and posterior falx, trace residual pneumocephalus. Ventricles are of normal size and morphology. No midline shift present. The hernandez-white matter differentiation is normal. The visualized portions of the orbits are normal. The visualized portions of the mastoids are normal. Mucus retention cyst of left maxillary sinus. No additional fractures identified. CTA: The visualized course and caliber of the internal carotid arteries in the head are normal. No areas of atherosclerotic narrowing or filling defects are identified. The anterior and middle cerebral arteries are normal. The vertebral arteries are codominant. The basilar artery is normal. The posterior cerebral arteries are normal. There is no aneurysm or vascular malformation identified. CTV: On the delayed venous images, contrast is seen within the superior sagittal, straight, transverse, and sigmoid sinuses. There is mass effect on the superior sagittal sinus from the depressed skull fracture fragments resulting in severe focal stenosis and inferior displacement, with stenosis extending anteriorly and posteriorly from the fragments as well, where there are small foci of extraaxial blood products causing external compression (series 24 image 84, series 10 image 30). The jugular veins, internal cerebral veins, and vein of Alex are normal. No luminal filling defects are seen. IMPRESSION: 1. Redemonstrated comminuted depressed skull fracture the vertex involving the bilateral parietal bones with intracranial displacement approximately 6 mm. Unchanged subdural blood products tracking along the falx. 2. Normal CT angiogram of the head. 3. Inferior displacement and mass effect of the superior sagittal sinus at the level the fracture fragments resulting in focal severe stenosis with extraaxial blood products causing external compression anterior and posterior to the fragments, however no filling defect to suggest dural venous thrombus. Dictated by: Loyda Macias MD The radiology attending physician has personally reviewed this study, and had reviewed and/or edited this written report and agrees with it. Electronically signed by: Adrian Wilder M.D. Marvel Glover MD IMG CT PROCEDURES Final Result * (ABNORMAL) POCT creatinine (12/09/2024 1:21 PM CDT) Creatinine POC 0.7(L) 0.8 - 1.3 mg/dL Blood 12/09/2024 1:21 PM CDT 12/09/2024 1:21 PM CDT Marvel Glover MD LAB POCT ORDERABLES - DEVICE Fin al Result [facility] Department [place] [address] * CT Head WO Contrast (12/09/2024 1:00 PM CDT) Anatomical Region Laterality Modality Head and Neck N/A Computed Tomogra phy 12/09/2024 1:10 PM CDT Impressions 12/09/2024 1:10 PM CDT 1. Depressed comminuted skull fracture in the midline parietal bone near the vertex with depressed fracture fragment extending intracranially by 6 mm with mass effect on the adjacent superior sagittal sinus. CT venogram of the head could be considered for further evaluation of the superior sagittal sinus. 2. Thin subdural hematoma extending along the interhemispheric fissure most pronounced anteriorly as well as extending over the left frontal lobe. No midline shift. These results were discussed with Dr. Glover by Dr. Wilder on 12/09/2024 at 1:05 PM. Electronically signed by: Adrian Wilder M.D. Narrative 12/09/2024 1:10 PM CDT EXAMINATION: CT head without contrast HISTORY: Penetrating head trauma TECHNIQUE: CT of the head was performed with images acquired from skull base to vertex without intravenous contrast. COMPARISON: None Available. FINDINGS: There is a comminuted calvarial fracture in the biparietal region in the midline near the vertex with depressed fracture fragments extending intracranially by 6 mm (series 4 image 73). This fracture extends along the sagittal suture. There is overlying soft tissue swelling/hematoma and small volume adjacent pneumocephalus as well as thin hyperdensity extending along the interhemispheric fissure particularly anteriorly and extending over the left frontal lobe consistent with thin subdural hematoma (series 6 image 41). This measures up to 3 mm in maximum depth. The basilar cisterns are patent. Ventricles are normal in size. Hernandez-white matter differentiation is otherwise maintained. No midline shift. There is mass effect on the underlying superior sagittal sinus secondary to depressed calvarial fracture. Mucus retention cyst in the left maxillary sinus. Mild mucosal thickening in the paranasal sinuses. Mastoid air cells are clear. Orbits are grossly normal. Procedure Note Adrian Wilder MD - 12/09/2024 EXAMINATION: CT head without contrast HISTORY: Penetrating head trauma TECHNIQUE: CT of the head was performed with images acquired from skull base to vertex without intravenous contrast. COMPARISON: None Available. FINDINGS: There is a comminuted calvarial fracture in the biparietal region in the midline near the vertex with depressed fracture fragments extending intracranially by 6 mm (series 4 image 73). This fracture extends along the sagittal suture. There is overlying soft tissue swelling/hematoma and small volume adjacent pneumocephalus as well as thin hyperdensity extending along the interhemispheric fissure particularly anteriorly and extending over the left frontal lobe consistent with thin subdural hematoma (series 6 image 41). This measures up to 3 mm in maximum depth. The basilar cisterns are patent. Ventricles are normal in size. Hernandez-white matter differentiation is otherwise maintained. No midline shift. There is mass effect on the underlying superior sagittal sinus secondary to depressed calvarial fracture. Mucus retention cyst in the left maxillary sinus. Mild mucosal thickening in the paranasal sinuses. Mastoid air cells are clear. Orbits are grossly normal. IMPRESSION: 1. Depressed comminuted skull fracture in the midline parietal bone near the vertex with depressed fracture fragment extending intracranially by 6 mm with mass effect on the adjacent superior sagittal sinus. CT venogram of the head could be considered for further evaluation of the superior sagittal sinus. 2. Thin subdural hematoma extending along the interhemispheric fissure most pronounced anteriorly as well as extending over the left frontal lobe. No midline shift. These results were discussed with Dr. Glover by Dr. Wilder on 12/09/2024 at 1:05 PM. Electronically signed by: Adrian Wilder M.D. Marvel Glover MD IMG CT PROCEDURES Final Result * Check Sample (12/09/2024 12:57 PM CDT) ABO Rh O Negative [facility] OTHER 12/09/2024 12:5 7 PM CDT 12/09/2024 1:06 PM CDT Marvel Glover MD LAB BLOOD ORDERABLES Final Resul t [facility] Department [place] [address] [facility] * Blood culture Blood (12/09/2024 12:57 PM CDT) Report Final Report: No growth Blood 12/09/2024 12:5 7 PM CDT 12/09/2024 1:18 PM CDT Narrative [facility] - 12/13/2024 4:00 PM CDT Collection->Peripheral 1. Blood cultures are incubated for 4 days on a continuously monitored blood culture system. The first report of a negative culture is issued within 24 hours of receipt of the specimen in the laboratory. 2. Positive culture results are reported as soon as they are detected. 3. The most important factor for detection of microbes in the setting of bloodstream infection is the volume of blood submitted for culture. Failure to collect an optimal blood volume can result in false negative blood cultures. 4. For pediatric patients, the recommended blood volume to collect follows a weight based strategy. See the electronic test catalog for collection instructions. 5. For positive blood cultures, a rapid molecular test may be performed for organism identification using the [employer] e[employer]lex blood culture identification panel for gram positive (BCID-GP) and gram negative (BCID-GN) organisms. This nucleic acid amplification test detects microbial DNA in positive blood culture broth. This assay has been cleared by the [place] Food and Drug Administration and its performance characteristics have been verified by the [facility]. For questions about this culture, contact the Microbiology Laboratory at [phone]. Interpretive data was last revised on 23. Marvel Glover MD LAB MICROBIOLOGY - GENERAL ORDER STARLA Final Result [facility] Department [place] [address] * Blood culture Blood (12/09/2024 12:57 PM CDT) Report Final Report: No growth Blood 12/09/2024 12:5 7 PM CDT 12/09/2024 1:18 PM CDT Narrative [facility] - 12/13/2024 4:00 PM CDT Collection->Peripheral 1. Blood cultures are incubated for 4 days on a continuously monitored blood culture system. The first report of a negative culture is issued within 24 hours of receipt of the specimen in the laboratory. 2. Positive culture results are reported as soon as they are detected. 3. The most important factor for detection of microbes in the setting of bloodstream infection is the volume of blood submitted for culture. Failure to collect an optimal blood volume can result in false negative blood cultures. 4. For pediatric patients, the recommended blood volume to collect follows a weight based strategy. See the electronic test catalog for collection instructions. 5. For positive blood cultures, a rapid molecular test may be performed for organism identification using the [employer] ePlex blood culture identification panel for gram positive (BCID-GP) and gram negative (BCID-GN) organisms. This nucleic acid amplification test detects microbial DNA in positive blood culture broth. This assay has been cleared by the [place] Food and Drug Administration and its performance characteristics have been verified by the [facility]. For questions about this culture, contact the Microbiology Laboratory at [phone]. Interpretive data was last revised on 23. us Marvel Glover MD LAB MICROBIOLOGY - GENERAL ORDER STARLA Final Result [facility] Department [place] [address] * [facility] C[facility] ILL/INJURED PATIENT INIT 30-74 MIN (12/09/2024 12:03 PM CDT) Narrative Marvel Glover MD - 12/09/2024 12:03 PM CDT Marvel Glover MD 12/09/2024 1:14 PM Critical Care Performed by: Marvel Glover MD Authorized by: Marvel Glover MD Critical care provider statement: As reflected in the history, physical exam, orders, notes, and/or MDM, I was personally present while the patient was critically ill and provided critical care services for 30 minutes, excluding time involved in separately billable procedures. Critical care was necessary to treat or prevent imminent or life-threatening deterioration of the following condition(s): acute intracranial hemorrhage Depressed, open skull fracture traumatic brain injury Critical care was time spent by me providing the following: continuous telemetry and serial bedside patient exams frequent neurologic exams I provided emergent necessary critical care medicine services to this patient. I ordered and reviewed test results and/or imaging studies. I spent time discussing the management of this critically ill patient with consultants and the medical staff. I spent time documenting in the medical record. us Marvel Glover MD [place] CLINIC/BEDSIDE ORDERABLES Fin al Result * POC Blood Gas and Chemistries, Venous - (12/09/2024 11:59 AM CDT) pH, Cindy POC 7.38 7.32 - 7.43 pCO2, cindy POC 43 40 - 50 mmHg [facility] pO2, cindy POC 34 mmHg [facility] Na, POC 136 135 - 145 mmol/L [facility] K POC 4.3 3.3 - 4.9 mmol/L [facility] Comment: Interpretive Data Not all point of care methods assess for hemolysis. Confirm with instrument and retest K+ if not consistent with clinical signs and symptoms. Current Interpretive Data was last revised on 2023. Cl, POC 104 97 - 110 mmol/L [facility] Ionized Ca, POC 4.64 4.50 - 5.10 mg/dL [facility] Glucose, POC 121 70 - 199 mg/dL [facility] Lactate POC 1.5 0.7 - 2.0 mmol/L [facility] MetHb, Cindy POC 0.3 0.0 - 1.9 % [facility] O2 Sat, Cindy POC (Elmo) 60 % [facility] Base excess, POC 0.0 mmol/L [facility] HCO3, Cindy POC 25 20 - 30 mmol/L [facility] Hct, POC 50.0 41.4 - 51.6 % [facility] Total Hb, POC 16.8 13.8 - 17.2 g/dL [facility] Blood 12/09/2024 11:5 9 AM CDT 12/09/2024 11:59 AM CDT us Forrest Mcconnell MD LAB POCT ORDERABLES - DEVIC E Final Result [facility] Department [place] [address] * Thromboelastometry Panel - Heparin (12/09/2024 11:58 AM CDT) Pathologist [facility] HEPTEM-CT 154 141 - 215 sec HEPTEM-A5 33 33 - 51 mm [facility] HEPTEM-A10 45 44 - 61 mm [facility] HEPTEM-A20 54 52 - 67 mm [facility] HEPTEM-MCF 58 54 - 69 mm [facility] Blood 12/09/2024 11:5 8 AM CDT 12/09/2024 12:03 PM CDT us Rasheeda Olmedo MD LAB BLOOD ORDERABLES Ed ited Result - Final [facility] Department [place] [address] * Thromboelastometry Panel - Intrinsic (12/09/2024 11:58 AM CDT) INTEM-CT 180 139 - 205 sec INTEM-A5 36 36 - 54 mm [facility] INTEM-A10 47 46 - 63 mm [facility] INTEM-A20 55 53 - 68 mm [facility] INTEM-MCF 58 55 - 70 mm [facility] INTEM-LI60 99 93 - 100 % [facility] INTEM-ML 1 0 - 7 % [facility] Comment: Interpretive Data Rotational Thromboelastometry (MAYITO) Sigma is a type of viscoelastic testing (VET). MAYITO can rapidly assess hemostasis and guide blood product transfusion in cardiac surgery, liver transplantation, and other bleeding situations. It is not a replacement for conventional coagulation testing (such as PT INR, aPTT and fibrinogen). While anticoagulation medications can impact MAYITO results, MAYITO should not be used to monitor or manage anticoagulation. Standard VET is insensitive to the pharmacological effects of aspirin, thienopyridines, P2Y12 inhibitors and flow-dependent platelet function defects. Literature References 1. Sarai M, Alexander E. Sensitivity of Viscoelastic Tests to Platelet Function. J Clin Med. 2020 Mar 07 9(6) 134. 2. Floresita O, Austen CM, Jhon N, Luis Alberto EE, Luis Alberto HB, Reynaldo HC, Jamil SILVA, Martin Burns MD, Jac SS, Paola Adkins, Manuela MC, Jose ML, Matthew AV, Matthew SG, Mitzi L, Jean JORDAN, Jordan Bhat, Marko P, Shiela D, Nina MM. Viscoelastic Hemostatic Assays A Primer on Legacy and New Generation Devices. J Clin Med. 2021Apr 04 11(0) 890. 3. MAYITO Operating Manual. Ratna Sexton MA. Darlene 13-15. D- [id number] [facility]. Blood 12/09/2024 11:5 8 AM CDT 12/09/2024 12:03 PM CDT Rasheeda Olmedo MD LAB BLOOD ORDERABLES Ed ited Result - Final Performing Organization Address City/[facility]/ZIP Co de Phone Number [facility] Department [place] [address] * Thromboelastometry Panel - Fibrinogen (12/09/2024 11:58 AM CDT) FIBTEM-A5 12 5 - 16 mm FIBTEM-A10 13 6 - 17 mm [facility] FIBTEM-A20 14 6 - 18 mm [facility] FIBTEM-MCF 15 9 - 19 mm [facility] Blood 12/09/2024 11:5 8 AM CDT 12/09/2024 12:03 PM CDT Rasheeda Olmedo MD LAB BLOOD ORDERABLES Ed ited Result - Final [facility] Department [place] [address] * Thromboelastometry Panel - Extrinsic (12/09/2024 11:58 AM CDT) EXTEM-CT 64 51 - 73 sec EXTEM-A5 40 33 - 52 mm [facility] EXTEM-A10 52 45 - 62 mm [facility] EXTEM-A20 60 54 - 69 mm [facility] EXTEM-MCF 64 57 - 72 mm [facility] EXTEM-LI60 99 94 - 100 % [facility] EXTEM-ML 1 0 - 6 % [facility] Blood 12/09/2024 11:5 8 AM CDT 12/09/2024 12:03 PM CDT us Rasheeda Olmedo MD LAB BLOOD ORDERABLES Ed ited Result - Final [facility] Department [place] [address] * eGFR (12/09/2024 11:58 AM CDT) eGFR >90 >=60 mL/min/1. 73 m2 Comment: Interpretive Data Reference Interval Normal >/= 90 mL/min/1.73m2 Mildly decreased* 60 - 89 mL/min/1.73m2 Mildly to moderately decreased 45 - 59 mL/min/1.73m2 Moderately to severely decreased 30 - 44 mL/min/1.73m2 Severely decreased 15 - 29 mL/min/1.73m2 Kidney Failure < 15 mL/min/1.73m2 *Relative to young adult level Estimated glomerular filtration rate is determined by the 2020 CKD-EPI equation recommended by the National Kidney Foundation (A Unifying Approach to GFR Estimation: Recommendations of the NKF-ASK Task Force on Reassessing the Inclusion of Race in Diagnosing Kidney Disease, JASN 202). The CKD-EPI equation should not be used for patients with unstable renal function and has not been validated in children and those over 70. Current interpretive data was last reviewed 2020. Blood 12/09/2024 11:5 8 AM CDT 12/09/2024 12:06 PM CDT us Marvel Glover MD LAB BLOOD ORDERABLES Final Resul t Performing Organization Address City/[facility]/ZIP Co de Phone Number [facility] Department [place] [address] * (ABNORMAL) Differential, auto (12/09/2024 11:58 AM CDT) Neutrophil abs 16.63(H) 1.50 - 6.50 K/cumm Imm gran abs 0.10 0.00 - 0.10 K/cumm [facility] Lymphocyte abs 1.06 0.80 - 3.30 K/cumm [facility] Monocyte abs 1.22(H) 0.20 - 0.80 K/cumm [facility] Eosinophil abs 0.03 0.00 - 0.50 K/cumm [facility] Basophil abs 0.03 0.00 - 0.10 K/cumm [facility] Neutrophil pct 87.1 % [facility] Comment: Interpretive Data Percent cell count reference ranges are not reported, since discordance with absolute values may lead to misinterpretation of CBC data. Current Interpretive Data was last revised on 2017. Imm gran pct 0.5 % [facility] Comment: Interpretive Data Percent cell count reference ranges are not reported, since discordance with absolute values may lead to misinterpretation of CBC data. Current Interpretive Data was last revised on 2017. Lymphocyte pct 5.6 % [facility] Comment: Interpretive Data Percent cell count reference ranges are not reported, since discordance with absolute values may lead to misinterpretation of CBC data. Current Interpretive Data was last revised on 2017. Monocyte pct 6.4 % [facility] Comment: Interpretive Data Percent cell count reference ranges are not reported, since discordance with absolute values may lead to misinterpretation of CBC data. Current Interpretive Data was last revised on 2017. Eosinophil pct 0.2 % [facility] Comment: Interpretive Data Percent cell count reference ranges are not reported, since discordance with absolute values may lead to misinterpretation of CBC data. Current Interpretive Data was last revised on 2017. Basophil pct 0.2 % [facility] Comment: Interpretive Data Percent cell count reference ranges are not reported, since discordance with absolute values may lead to misinterpretation of CBC data. Current Interpretive Data was last revised on 2017. Blood 12/09/2024 11:5 8 AM CDT 12/09/2024 12:06 PM CDT Rasheeda Olmedo MD LAB BLOOD ORDERABLES Fi nal Result Performing Organization Address [facility] Co de Phone Number [facility] Department [place] [address] * (ABNORMAL) CBC with auto differential (12/09/2024 11:58 AM CDT) [facility] WBC 19.07(H) 3.80 - 9.90 K/cumm Hgb 16.2 13.0 - 17.5 g/dL [facility] Hct 45.2 38.9 - 50.3 % [facility] Plt 260 150 - 400 K/cumm [facility] MPV 9.1 9.1 - 12.3 fL [facility] RBC 4.67 4.30 - 5.80 M/cumm [facility] MCV 96.8(H) 81.3 - 96.4 fL [facility] MCH 34.7(H) 27.1 - 33.3 pg [facility] MCHC 35.8(H) 32.3 - 35.7 g/dL [facility] RDW CV 13.2 11.1 - 14.9 % [facility] RDW SD 47.0 35.7 - 48.1 fL [facility] NRBC abs 0.00 0.00 - 0.01 K/cumm [facility] Blood 12/09/2024 11:5 8 AM CDT 12/09/2024 12:06 PM CDT Rasheeda Olmedo MD LAB BLOOD ORDERABLES Fi nal Result Performing Organization Address City/[facility]/ZIP Co de Phone Number [facility] Department [place] [address] * aPTT (12/09/2024 11:58 AM CDT) Pathologist [facility] aPTT 28 26 - 38 sec Comment: Interpretive Data Heparin therapeutic range: 66.0 - 100.0 seconds. Range based on correlation with therapeutic heparin activity range of 0.3 - 0.7 Units/mL. Current interpretive data was last revised on 2022. Blood 12/09/2024 11:5 8 AM CDT 12/09/2024 12:04 PM CDT Rasheeda Olmedo MD LAB BLOOD ORDERABLES Fi nal Result Performing Organization Address [facility] Co de Phone Number [facility] [place] [address] * Erythrocyte sedimentation rate (12/09/2024 11:58 AM CDT) Erythrocyte sedimentation rate 5 1 - 20 mm/hr Blood 12/09/2024 11:5 8 AM CDT 12/09/2024 12:10 PM CDT us Marvel Glover MD LAB BLOOD ORDERABLES Final Resul t Performing Organization Address [facility] de Phone Number [facility] [place] [address] * Protime-INR (12/09/2024 11:58 AM CDT) PT 10.8 10.2 - 13.5 sec INR 0.95 0.90 - 1.20 [facility] Comment: Interpretive data Oral anticoagulant therapeutic ranges: Venous thromboembolism prophylaxis or treatment: 2.0-3.0 CARDIOLOGY Standard range: 2.0-3.0 High-intensity range: 2.5-3.5 Refer to indication-specific guidelines for appropriate target ranges for prosthetic heart valve replacement. Current interpretive data was last revised on 2019. Blood 12/09/2024 11:5 8 AM CDT 12/09/2024 12:04 PM CDT Rasheeda Olmedo MD LAB BLOOD ORDERABLES Fi nal Result Performing Organization Address [facility] Co de Phone Number [facility] [place] [address] * Type and screen (12/09/2024 11:58 AM CDT) ABO Rh O Negative Nohelia, indirect Negative [facility] Blood 12/09/2024 11:5 8 AM CDT 12/09/2024 12:22 PM CDT Narrative [facility] - 12/09/2024 1:18 PM CDT Has the patient had Daratumumab or Isatuximab in the past 6 months?->Unknown Rasheeda Olmedo MD LAB BLOOD BANK TEST ORD ERABLES Final Result Performing Organization Address [facility] Co de Phone Number [facility] Department [place] [address] * CRP (acute phase) (12/09/2024 11:58 AM CDT) CRP 3.4 <=10.0 mg/L Blood 12/09/2024 11:5 8 AM CDT 12/09/2024 12:06 PM CDT Marvel Glover MD LAB BLOOD ORDERABLES Final Resul t Performing Organization Address [facility] de Phone Number [facility] Department [place] [address] * Ethanol (12/09/2024 11:58 AM CDT) Ethanol <10 <=10 mg/dL Comment: Interpretive Data Legal limit of intoxication > or = 80 mg/dL Levels > or = 400 mg/dL are potentially TOXIC. Current interpretive data was last revised on 2018. Blood 12/09/2024 11:5 8 AM CDT 12/09/2024 12:06 PM CDT Rasheeda Olmedo MD LAB BLOOD ORDERABLES Fi nal Result Performing Organization Address [facility] Co de Phone Number [facility] Department [place] [address] * (ABNORMAL) Comprehensive metabolic panel (12/09/2024 11:58 AM CDT) Sodium 136 135 - 145 mmol/L Potassium, pl 4.3 3.3 - 4.9 mmol/L [facility] Chloride 101 97 - 110 mmol/L [facility] CO2 21(L) 22 - 32 mmol/L [facility] Anion gap 14 2 - 15 mmol/L [facility] BUN 17 6 - 25 mg/dL [facility] Creatinine 0.75(L) 0.80 - 1.30 mg/dL [facility] Glucose 105 70 - 199 mg/dL [facility] Comment: Interpretive Data Fasting glucose >/= 126 mg/dl is diagnostic for diabetes. Fasting is defined as no caloric intake for at least 8 hours. Fasting glucose between 100 mg/dl to 125 mg/dl is diagnostic of prediabetes. In a patient with classic symptoms of hyperglycemia or hyperglycemic crisis, a random glucose >/= 200 mg/dl is diagnostic for diabetes. In the absence of unequivocal hyperglycemia, results should be confirmed by repeat testing. The classification and Diagnosis of Diabetes Diabetes Care 202; 46: S19-S40. Current interpretive data was last revised 2022. Calcium 9.1 8.5 - 10.3 mg/dL [facility] Bilirubin, total 0.7 0.1 - 1.2 mg/dL [facility] Protein, pl 7.9 6.5 - 8.5 g/dL [facility] Albumin 4.2 3.5 - 5.0 g/dL [facility] Alk phos 81 40 - 130 Units/L [facility] ALT 40 7 - 55 Units/L [facility] AST 38 10 - 50 Units/L [facility] Blood 12/09/2024 11:5 8 AM CDT 12/09/2024 12:06 PM CDT Marvel Glover MD LAB BLOOD ORDERABLES Final Resul t [facility] LUCI[facility] Department [place] [address] from Last 3 Months Insurance [place] Directives For more information, please contact: [phone] * Full Code (Latest Code Status on File) Date Activated Date Inactivated Comments 12/10/2024 9:10 AM 12/10/2024 8:52 PM Care Teams Pain Management Physician Relationship Specialty Start Date End Date Anastacio Guido MD PCP - General Family Medicine 09/01/22
== END 2024-12-25 12:08 | disposition home or self-care (01) ==
PROVIDERS: PCP Family Medicine; Visit Provider Physician Assistant Medical
DX: D72.9 Disorder of white blood cells, unspecified (principal)
CPT/HCPCS: 36415; 85025

== ENCOUNTER 2025-02-17 08:55 | Outpatient (CLI) | payer BC, SELFPAY ==
--- OUTSIDE RECORDS SUMMARY | 2025-02-17 09:11 | XMS_ITS | Clinical Summary ---
Author Organization [facility] Address [address] [place] [address] Care Team Providers Care Hosiery Pairer Name Role Phone Unavailable Primary Care Provider Unavailabl e Source Comments [facility],non-owned Affiliates and Associated Physician Practices is amultiple site organization consisting of ambulatory clinics and hospital sitesin [place], [place], [place] and [place]. This disclosure is being madepursuant to the Care Everywhere program and may not contain all information available regarding this patient. 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 Gender Identity Not on file Sexual Orientation Not on file Plan of Treatment Health Maintenance Due Date Last Done Comments COLOGUARD (AGES 45-75) - COL ON CA SCREENING 1963 COLON MONITORING 1963 COLONOSCOPY - COLON CA SCREENING 1963 CT COLONOGRAPHY - COLON CA SCREENING 1963 Colorectal Cancer Screening 1963 FIT - COLON CA SCREENING 1963 FLEX SIG - COLON CA SCREENING 1963 LIPID TESTING 1963 HIV SCREENING 1978 HEPATITIS C SCREENING 02/20/1981 DTAP/TDAP/TD VACCINES (1 - Tdap) 1982 PNEUMOCOCCAL VACCINE 50+ (1 of 1 - PCV) 2013 ZOSTER VACCINE (1 of 2) 2013 DEPRESSION SCREENING 02/27/2024 COVID-19 VACCINE (1 - 2024-2 6 season) 2024 INFLUENZA VACCINE (#1) 2024 Respiratory Syncytial Virus (RSV) Vaccine Pt: or over 60 yrs (1 - 1-dose 75+ series) 2038 HEPATITIS B VACCINE Aged Out No longe r eligible based on patient's age to complete this topic HIB VACCINE Aged Out No longer eligi ble based on patient's age to complete this topic HPV VACCINE Aged Out No longer eligi ble based on patient's age to complete this topic MENINGOCOCCAL (Group B) VACC INE SHARED DECISION-MAKING Aged Out No longer eligibl e based on patient's age to complete this topic MENINGOCOCCAL GROUPS A/C/Y/W VACCINE Aged Out No longer eligible b ased on patient's age to complete this topic Procedures Procedure Name Priority Date/Time Associated Diagnosis Comments DERMATOPATHOLOGY Routine 01/27/2025 12:0 0 AM AUTOMATION TESTER from Last 3 Months Results * DERMATOPATHOLOGY (01/27/2025 12:00 AM AUTOMATION TESTER) Case Report Dermatopathology Report Case: [id number] Authorizing Provider: Anastacio Guido MD Collected: 01/27/2025 12:00 AM Ordering Location: [facility] - Received: 01/27/2025 02:21 PM DermPath Lab Pathologist: Erma Willoughby MD Specimen: Skin, right lower back 3:18 PM AUTOMATION TESTER DERMATOPATHOLOGY LABORATORY Final Diagnosis Specimen A. SKIN, right lower back: SEBORRHEIC KERATOSIS, IRRITATED AND INFLAMED (L82.0) (see microscopic description) 3:18 PM AUTOMATION TESTER DERMATOPATHOLOGY LABORATORY at 1518 AUTOMATION TESTER Clinical History Changing Lesion. Check margins 3:18 PM AUTOMATION TESTER DERMATOPATHOLOGY LABORATORY Gross Description Specimen A: Received is one formalin filled container labeled with the patient's name and designated right lower back. The specimen consists of a shave biopsy measuring 10x8x6 mm. Jar 0. 3:18 PM AUTOMATION TESTER DERMATOPATHOLOGY LABORATORY Microscopic Description Specimen A. SKIN, right lower back: Sections show acanthosis, papillomatosis, hyperkeratosis, and squamous eddies. There is a lymphohistiocytic infiltrate within the papillary dermis. Additional deeper sections were obtained and reviewed. 3:18 PM AUTOMATION TESTER DERMATOPATHOLOGY LABORATORY Disclaimer An external and internal positive and negative controls are appropriate for the histochemical, immunohistochemical and immunofluorescence stain(s) in this case (if any), except where stated explicitly. The performance characteristics of the stain(s) cited in this report were developed and its performance characteristic determined by the Dermatopathology Laboratory at [facility], directed by Dr. Yaniv Marr. These tests need not be, and therefore are not, approved by the [place] Food and Drug Administration. The tests are used for clinical purposes. Billing Codes Specimen Charges Stain Charges 64348 1 78351 1 3:18 PM AUTOMATION TESTER DERMATOPATHOLOGY LABORATORY Embedded Images 3:18 PM AUTOMATION TESTER DERMATOPATHOLOGY LABORATORY Pathology/Cytolog y TISSUE SPECIMEN FROM SKIN / Unknown 01/27/2025 01/27/2025 2:21 PM AUTOMATION TESTER Anastaciojudit Guido MD LAB - PATHOLOGY/CYTOLOGY HEMALATHA BECWKITH Final Result DERMATOPATHOLOGY LABORATORY [facility] - Department of Dermatology [address] [phone] from Last 3 Months Insurance [facility] JALEELEM
--- OUTSIDE RECORDS SUMMARY | 2025-02-17 09:11 | XMS_ITS | Encounter Summary ---
Author Organization [facility] Address [address] [place] [address] Care Team Providers Care Dot Net Developer Name Role Phone Unavailable Primary Care Provider Unavailabl e Encounter Details Date Type Department Care Team (Late st Contact Info) Description 01/27/2025 Lab Requisition [facility] - DermPath Lab [address] [place] [phone] Anastacio Guido MD [address] [place] [address] Social History Tobacco Use Types Packs/Day Years Used Date Smoking Tobacco: Never Assessed Sex and Gender Information Value Date Recorded Sex Assigned at Not on file 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 Gender Identity Not on file Sexual Orientation Not on file documented as of this encounter Plan of Treatment Not on file documented as of this encounter Procedures Procedure Name Priority Date/Time Associated Diagnosis Comments DERMATOPATHOLOGY Routine 01/27/2025 12:0 0 AM SUBWAREHOUSE SUPERVISOR documented in this encounter Results * DERMATOPATHOLOGY (01/27/2025 12:00 AM SUBWAREHOUSE SUPERVISOR) Case Report Dermatopathology Report Case: [id number] Authorizing Provider: Anastacio Guido MD Collected: 01/27/2025 12:00 AM Ordering Location: [facility] Physician [facility] - Received: 01/27/2025 02:21 PM DermPath Lab Pathologist: Erma Willoughby MD Specimen: Skin, right lower back 3:18 PM SUBWAREHOUSE SUPERVISOR DERMATOPATHOLOGY LABORATORY Final Diagnosis Specimen A. SKIN, right lower back: SEBORRHEIC KERATOSIS, IRRITATED AND INFLAMED (L82.0) (see microscopic description) 3:18 PM SUBWAREHOUSE SUPERVISOR DERMATOPATHOLOGY LABORATORY at 1518 SUBWAREHOUSE SUPERVISOR Clinical History Changing Lesion. Check margins 3:18 PM [facility] DERMATOPATHOLOGY LABORATORY Gross Description Specimen A: Received is one formalin filled container labeled with the patient's name and designated right lower back. The specimen consists of a shave biopsy measuring 10x8x6 mm. Jar 0. 3:18 PM [facility] DERMATOPATHOLOGY LABORATORY Microscopic Description Specimen A. SKIN, right lower back: Sections show acanthosis, papillomatosis, hyperkeratosis, and squamous eddies. There is a lymphohistiocytic infiltrate within the papillary dermis. Additional deeper sections were obtained and reviewed. 3:18 PM [facility] DERMATOPATHOLOGY LABORATORY Disclaimer An external and internal positive and negative controls are appropriate for the histochemical, immunohistochemical and immunofluorescence stain(s) in this case (if any), except where stated explicitly. The performance characteristics of the stain(s) cited in this report were developed and its performance characteristic determined by the Dermatopathology Laboratory at [facility], directed by Dr. Yaniv Marr. These tests need not be, and therefore are not, approved by the [place] Food and Drug Administration. The tests are used for clinical purposes. Billing Codes Specimen Charges Stain Charges 79958 1 82193 1 3:18 PM [facility] DERMATOPATHOLOGY LABORATORY Embedded Images 3:18 PM [facility] DERMATOPATHOLOGY LABORATORY Pathology/Cytolog y TISSUE SPECIMEN FROM SKIN / Unknown 01/27/2025 01/27/2025 2:21 PM SUBWAREHOUSE SUPERVISOR us Anastaciobunny Guido MD LAB - PATHOLOGY/CYTOLOGY HEMALATHA BECKWITH Final Result DERMATOPATHOLOGY LABORATORY [facility] - Department of Dermatology [address] [phone] documented in this encounter Visit Diagnoses Not on filedocumented in this encounter
--- OUTSIDE RECORDS SUMMARY | 2025-02-17 09:11 | XMS_ITS | Clinical Summary ---
Author Organization [facility] Address [address] [place] [address] Care Team Providers Care Contracting Support Specialist Name Role Phone Anastacio Guido MD Primary Care Provider [phone] Allergies No known active allergies Medications traZODone (DESYREL) 50 mg tablet Take 1 tablet (50 mg total) by mouth nightly 07/06/2022 Active acetaminophen 500 mg capsuleIndicati ons:Pain Take 2 capsules (1,000 mg total) by mouth every 6 (six) hours 12/10/2024 Active oxyCODONE (ROXICODONE) 5 mg immediate release tabletIndicatio ns:Pain Take 1 tablet (5 mg total) by mouth every 4 (four) hours as needed for pain 15 tablet 12/10/2024 Active albuterol HFA (PROVENTIL HFA,VENTOLIN HFA,PROAIR HFA) 90 mcg/actuation inhaler Inhale 01/30/2024 Active Active Problems Problem Noted Date Diagnosed Date Skull fracture 12/09/2024 Scar 10/01/2014 Encounters Date Type Department Care Team Description 01/30/2025 Telephone [facility] Physicians [address] [place] [address] Loyda Villalpando PA 01/02/2025 Telephone [facility] Medicine Neurosurgery [address], [address] [place] [address] Loyda Villalpando PA 01/01/2025 1:00 PM [employer] Office Visit [facility] Physicians [address] [place] [address] Loyda Villalpando PA Open depressed fracture of skull, initial encounter (HCC) (Primary Dx) 01/01/2025 10:50 AM [employer] - 01/01/2025 11:59 PM [employer] Hospital Encounter [facility] - Imaging [address] [place] [address] Open depressed fracture of skull, initial encounter (HCC); Skull fracture (HCC) Discharge Disposition: Discharge to home or self care 12/23/2024 8:00 AM CDT Office Visit [facility] Advanced Medicine ([facility]) - [facility] Medicine ENT [address] [place] [address] [place] [address] Won Gross MD Laceration of scalp, initial encounter (Primary Dx); Skull fracture (HCC); Facial pain 12/16/2024 Orders Only [facility] Physicians [address] [place] [address] Loyda Villalpando PA Skull fracture (HCC) (Primary Dx); Open depressed fracture of skull, initial encounter (HCC) 12/15/2024 Telephone [facility] Medicine Scheduling [address] [place] [address] Shama Martinez 12/09/2024 11:52 AM CDT - 12/10/2024 4:46 PM CDT Hospital Encounter [facility] [address] [place] [address] Marvel Glover MD Stickles, Sean Patrick, MD [...] on file Legal Sex Male 7:52 PM [employer] Gender Identity Male 11/07/2022 4:15 PM CDT Sexual Orientation Straight 11/07/2022 4: 15 PM CDT Last Filed Vital Signs Vital Sign Reading Time Taken Comments Blood Pressure 142/82 01/01/2025 1:07 PM [employer] Pulse 73 01/01/2025 1:07 PM [employer] Temperature 36.7 C (98.1 F) 12/10/2024 2:45 AM CDT Respiratory Rate 14 12/10/2024 11:04 AM CDT Oxygen Saturation 90% 01/01/2025 1:07 PM [employer] Inhaled Oxygen Concentration - - Weight 73 kg (161 lb) 01/01/2025 1:07 PM [employer] Height 175.3 cm (5' 9) 01/01/2025 1:07 PM [employer] Body Mass Index 23.78 01/01/2025 1:07 PM [employer] Plan of Treatment Health Maintenance Due Date [...] Procedure Name Priority Date/Time Associated Diagnosis Comments CTA HEAD VENOGRAM W WO CONTRAST Schedule Routine, Read Routine (OP Routine) 01/01/2025 11:54 AM [employer] Open depressed fracture of skull, initial encounter (HCC) Skull fracture (HCC) EGFR Routine 12/10/2024 2:43 AM CDT BASIC METABOLIC PANEL Routine 12/10/2024 2:43 AM CDT CTA HEAD VENOGRAM W WO CONTRAST ED 12/09/2024 2:44 PM CDT POCT CREATININE - DEVICE Routine 1:[address] HEAD WO CONTRAST ED 12/09/2024 1 :00 PM CDT B CHECK SAMPLE STAT 12/09/2024 12:57 PM CDT BLOOD CULTURE STAT 12/09/2024 12:57 PM CDT BLOOD CULTURE STAT 12/09/2024 12:57 PM CDT [place] CRITICAL CARE ILL/INJURED PATIENT INIT 30-74 MIN [...] AM CDT CRP (ACUTE PHASE) Routine 12/09/2024 11:58 AM CDT DIFFERENTIAL AUTO Routine 12/09/2024 11:58 AM CDT THROMBOELASTOMETRY PANEL Routine 025 11:58 AM CDT PROTIME-INR Routine 12/09/2024 11:58 AM CDT APTT Routine 12/09/2024 11:58 AM CDT ETHANOL Routine 12/09/2024 11:58 AM CDT CBC WITH AUTO DIFFERENTIAL Routine 12/09/2024 11:58 AM CDT TYPE AND SCREEN Timed 12/09/2024 11:58 AM CDT from Last 3 Months Results * CTA Head Venogram W WO Contrast (01/01/2025 11:54 AM [employer]) Anatomical Region Laterality Modality Head and Neck N/A Computed Tomogra phy 01/01/2025 12:1 9 PM [employer] Impressions 01/01/2025 12:19 PM [employer] Unchanged focally depressed (6 mm) comminuted midline parietal vertex calvarial fracture exerting mass effect on the superior sagittal sinus causing moderate focal stenosis of the sinus. Mass effect on underlying and cortical veins immediately subjacent to the depression. The superior sagittal sinus and adjacent cortical veins at the fracture site remain patent without thrombosis. Interval evolution of subdural blood products associated with the fracture. No new acute intracranial abnormality. Electronically signed by: Alexi Alfred MD Narrative 01/01/2025 12:19 PM [employer] EXAMINATION: Computed tomography angiography/venography (CTA/CTV) of the head without and with contrast HISTORY: Skull fracture TECHNIQUE: CT of the head was performed with images acquired from skull base to vertex without intravenous contrast. Computed tomographic angiography was obtained from the skull base to the vertex following the uneventful administration of intravenous contrast. 3D images of the CTA were generated on a dedicated workstation/banquet food server. Venous phase delayed CT of the head was then performed with images acquired from skull base to vertex. Contrast information: 68 mL Optiray-350 IV COMPARISON: CTA 12/09/2024 FINDINGS: HEAD: Ventricles are of normal size and morphology. No mass effect or midline shift is present. The hernandez-white matter differentiation is normal. The visualized portions of the orbits are normal. The visualized portions of the mastoids are normal. Left maxillary sinus mucus retention cyst. Mild soft tissue swelling overlying midline, focally depressed comminuted parietal vertex skull fracture. Evolution of subdural blood products underlying fracture. No new hemorrhage. CTA: The visualized course and caliber of the internal carotid arteries in the head are normal. No areas of atherosclerotic narrowing or filling defects are identified. Incomplete mohegan of Jara. Hypoplastic small caliber right A1 segment. No visible posterior communicating arteries. Large caliber anterior communicator present. The anterior and middle cerebral arteries are normal. The vertebral arteries are codominant. The basilar artery is normal. The posterior cerebral arteries are normal. There is no aneurysm or vascular malformation identified. CTV: Unchanged focally depressed (6 mm) midline high parietal calvarial fractures exert mass effect on the superior sagittal sinus causing moderate focal stenosis of the sinus. Mass effect on underlying and cortical veins immediately subjacent to the depression. The superior sagittal sinus and adjacent cortical veins at the fracture site remain patent without thrombosis. Superior sagittal, straight, transverse, and sigmoid sinuses are otherwise normal.. The jugular veins, internal cerebral veins, and vein of Alex are normal. Procedure Note Alexi Alfred MD PhD - 01/01/2025 EXAMINATION: Computed tomography angiography/venography (CTA/CTV) of the head without and with contrast HISTORY: Skull fracture TECHNIQUE: CT of the head was performed with images acquired from skull base to vertex without intravenous contrast. Computed tomographic angiography was obtained from the skull base to the vertex following the uneventful administration of intravenous contrast. 3D images of the CTA were generated on a dedicated workstation/banquet food server. Venous phase delayed CT of the head was then performed with images acquired from skull base to vertex. Contrast information: 68 mL Optiray-350 IV COMPARISON: CTA 12/09/2024 FINDINGS: HEAD: Ventricles are of normal size and morphology. No mass effect or midline shift is present. The hernandez-white matter differentiation is normal. The visualized portions of the orbits are normal. The visualized portions of the mastoids are normal. Left maxillary sinus mucus retention cyst. Mild soft tissue swelling overlying midline, focally depressed comminuted parietal vertex skull fracture. Evolution of subdural blood products underlying fracture. No new hemorrhage. CTA: The visualized course and caliber of the internal carotid arteries in the head are normal. No areas of atherosclerotic narrowing or filling defects are identified. Incomplete mohegan of Jara. Hypoplastic small caliber right A1 segment. No visible posterior communicating arteries. Large caliber anterior communicator present. The anterior and middle cerebral arteries are normal. The vertebral arteries are codominant. The basilar artery is normal. The posterior cerebral arteries are normal. There is no aneurysm or vascular malformation identified. CTV: Unchanged focally depressed (6 mm) midline high parietal calvarial fractures exert mass effect on the superior sagittal sinus causing moderate focal stenosis of the sinus. Mass effect on underlying and cortical veins immediately subjacent to the depression. The superior sagittal sinus and adjacent cortical veins at the fracture site remain patent without thrombosis. Superior sagittal, straight, transverse, and sigmoid sinuses are otherwise normal.. The jugular veins, internal cerebral veins, and vein of Alex are normal. IMPRESSION: Unchanged focally depressed (6 mm) comminuted midline parietal vertex calvarial fracture exerting mass effect on the superior sagittal sinus causing moderate focal stenosis of the sinus. Mass effect on underlying and cortical veins immediately subjacent to the depression. The superior sagittal sinus and adjacent cortical veins at the fracture site remain patent without thrombosis. Interval evolution of subdural blood products associated with the fracture. No new acute intracranial abnormality. Electronically signed by: Alexi Alfred MD Loyda IYER IMG CT PROCEDURES Final Result * eGFR (12/10/2024 2:43 AM CDT) Pathologist [facility] eGFR >90 >=60 mL/min/1. 73 m2 Comment: [...] of Race in Diagnosing Kidney Disease, JASN 2020). The CKD-EPI equation should not be used for patients with unstable renal function and has not been validated in children and those over 70. Current interpretive data was last reviewed 2020. Blood 12/10/2024 2:43 AM CDT 12/10/2024 2:54 AM CDT us Forrest Mcconnell MD LAB BLOOD ORDERABLES Final Result [facility] Department [place] [address] * (ABNORMAL) Basic metabolic panel (12/10/2024 2:43 AM CDT) [facility] Sodium 138 135 - 145 mmol/L Potassium, pl 3.7 3.3 - 4.9 mmol/L [facility] Comment:Hemolyzed; Potassium value may be falsely elevated by as much as 0.3-0.5 mmol/L. Suggest redraw and reanalysis. Chloride 109 97 - 110 mmol/L [facility] CO2 21(L) 22 - 32 mmol/L [facility] Anion gap 8 2 - 15 mmol/L [facility] BUN 14 6 - 25 mg/dL [facility] Creatinine 0.67(L) 0.80 - 1.30 mg/dL [facility] Glucose 97 70 - 199 mg/dL [facility] Comment: Interpretive Data Fasting glucose >/= [...] classification and Diagnosis of Diabetes Diabetes Care 2021; 46: S19-S40. Current interpretive data was last revised 2022. Calcium 7.6(L) 8.5 - 10.3 mg/dL [facility] Blood 12/10/2024 2:43 AM CDT 12/10/2024 2:54 AM CDT us Forrest Mcconnell MD LAB BLOOD ORDERABLES Final Result Performing Organization Address City/State/[facility] Co de Phone Number [facility] Department [place] [address] * CTA Head Venogram W WO Contrast [...] the CTA were generated on a dedicated workstation/banquet food server. Venous phase delayed CT of the head [...] the CTA were generated on a dedicated workstation/banquet food server. Venous phase delayed CT of the head [...] it. Electronically signed by: Adrian Wilder M.D. us Marvel Glover MD IMG CT PROCEDURES Final Result * (ABNORMAL) POCT creatinine (12/09/2024 1:21 PM CDT) Creatinine POC 0.7(L) 0.8 - 1.3 mg/dL Blood 12/09/2024 1:21 PM CDT 12/09/2024 1:21 PM CDT Marvel Glover MD LAB POCT ORDERABLES - DEVICE Fin al Result [facility] Department [place] [address] * CT Head WO Contrast (12/09/2024 1:00 [...] 12:57 PM CDT) ABO Rh O Negative [facility] OTHER 12/09/2024 12:5 7 PM CDT 12/09/2024 1:06 PM CDT Marvel Glover MD LAB BLOOD ORDERABLES Final Resul t [facility] Department [place] [address] [facility] * Blood culture Blood (12/09/2024 12:57 PM CDT) Report Final Report: No growth Blood 12/09/2024 12:5 7 PM CDT 12/09/2024 1:18 PM CDT Narrative [facility] - 12/13/2024 4:00 PM CDT Collection->Peripheral 1. [...] performance characteristics have been verified by the [facility] Microbiology Laboratory. For questions about this culture, contact the Microbiology Laboratory at [phone]. Interpretive data was last revised on 23. us Marvel Glover MD LAB MICROBIOLOGY - GENERAL ORDER STARLA Final Result [facility] Department [place] [address] * Blood culture Blood (12/09/2024 12:57 PM CDT) Report Final Report: No growth Blood 12/09/2024 12:5 7 PM CDT 12/09/2024 1:18 PM CDT [facility]ative [facility] - 12/13/2024 4:00 PM CDT Collection->Peripheral 1. [...] performance characteristics have been verified by the [facility]biology [facility]. For questions about this culture, contact the Microbiology Laboratory at [phone]. Interpretive data was last revised on 23. Marvel Glover MD LAB MICROBIOLOGY - GENERAL ORDER STARLA Final Result [facility] Department [place] [address] * [place] CRITICAL CARE ILL/INJURED PATIENT INIT 30-74 MIN [...] cindy POC 43 40 - [address] [facility] pO2, cindy POC [address] [facility] Na, POC 136 135 - 145 mmol/L [facility] K POC 4.3 3.3 - 4.9 mmol/L [facility] Comment: Interpretive Data Not all point of care methods assess for hemolysis. Confirm with instrument and retest K+ if not consistent with clinical signs and symptoms. Current Interpretive Data was last revised on 2023. Cl, POC 104 97 - 110 mmol/L [facility] Ionized Ca, POC 4.64 4.50 - 5.10 mg/dL [facility] Glucose, POC 121 70 - 199 mg/dL [facility] Lactate POC 1.5 0.7 - 2.0 mmol/L [facility] MetHb, Cindy POC 0.3 0.0 - 1.9 % [facility] O2 Sat, Cindy POC (Elmo) 60 % [facility] Base excess, POC 0.0 mmol/L [facility] HCO3, Cindy POC 25 20 - 30 mmol/L [facility] Hct, POC 50.0 41.4 - 51.6 % [facility] Total Hb, POC 16.8 13.8 - 17.2 g/dL [facility] Blood 12/09/2024 11:5 9 AM CDT 12/09/2024 11:59 AM CDT us Forrest Mcconnell MD LAB POCT ORDERABLES - DEVIC E Final Result [facility] Department [place] [address] * Thromboelastometry Panel - Heparin (12/09/2024 11:58 AM CDT) [facility] HEPTEM-CT 154 141 - 215 sec HEPTEM-A5 33 33 - [address] [facility] HEPTEM-A10 45 44 - [address] [facility] HEPTEM-A20 54 52 - [address] [facility] HEPTEM-MCF 58 54 - [address] [facility] Blood 12/09/2024 11:5 8 AM CDT 12/09/2024 12:03 PM CDT us Rasheeda Olmedo MD LAB BLOOD ORDERABLES Ed ited Result - Final [facility] Department [place] [address] * Thromboelastometry Panel - Intrinsic (12/09/2024 11:58 AM CDT) INTEM-CT 180 139 - 205 sec INTEM-A5 36 36 - 54 mm [facility] INTEM-A10 47 46 - 63 mm [facility] INTEM-A20 55 53 - 68 mm [facility] INTEM-MCF 58 55 - 70 mm [facility] INTEM-LI60 99 93 - 100 % [facility] INTEM-ML 1 0 - 7 % [facility] Comment: Interpretive Data Rotational Thromboelastometry (MAYITO) [...] Tests to Platelet Function. J Clin Med. 2019 10 9(1) 859. 2. Floresita O, Austen CM, Jhon N, Luis Alberto EE, Luis Alberto HB, Reynaldo HC, Jamil SILVA, Martin Burns MD, Jac SS, Paola G, Manuela MC, Jose ML, Matthew AV, Matthew SG, Mitzi L, Jean BoudreauxZ, Jordan M, Marko P, Shiela D, Nina MM. Viscoelastic Hemostatic Assays A Primer on Legacy and New Generation Devices. J Clin Med. 2021Apr 04 11(1) 850. 3. MAYITO Operating Manual. Ratna Sexton MA. Darlene 13-15. D- 18166 Counts Include [facility]. Blood 12/09/2024 11:5 8 AM CDT 12/09/2024 12:03 PM CDT Rasheeda Olmedo MD LAB BLOOD ORDERABLES Ed ited Result - Final Performing Organization Address City/[facility] Co de Phone Number [facility] Department [place] [address] * Thromboelastometry Panel - Fibrinogen (12/09/2024 11:58 AM CDT) FIBTEM-A5 12 5 - 16 mm FIBTEM-A10 13 6 - 17 mm [facility] FIBTEM-A20 14 6 - 18 mm [facility] FIBTEM-MCF 15 9 - 19 mm [facility] Blood 12/09/2024 11:5 8 AM CDT 12/09/2024 12:03 PM CDT Rasheeda Olmedo MD LAB BLOOD ORDERABLES Ed ited Result - Final Performing Organization Address [facility] de Phone Number [facility] Department [place] [address] * Thromboelastometry Panel - Extrinsic (12/09/2024 11:58 AM CDT) EXTEM-CT 64 51 - 73 sec EXTEM-A5 40 33 - 52 mm [facility] EXTEM-A10 52 45 - 62 mm [facility] EXTEM-A20 60 54 - 69 mm [facility] EXTEM-MCF 64 57 - 72 mm [facility] EXTEM-LI60 99 94 - 100 % [facility] EXTEM-ML 1 0 - 6 % [facility] Blood 12/09/2024 11:5 8 AM CDT 12/09/2024 12:03 PM CDT Rasheeda Olmedo MD LAB BLOOD ORDERABLES Ed ited Result - Final Performing Organization Address City/[facility] Co de Phone Number [facility] Department [place] [address] * eGFR (12/09/2024 11:58 AM CDT) Pathologist [facility] eGFR >90 >=60 mL/min/1. 73 m2 Comment: [...] of Race in Diagnosing Kidney Disease, JASN 2020). The CKD-EPI equation should not be used for patients with unstable renal function and has not been validated in children and those over 70. Current interpretive data was last reviewed 2020. Blood 12/09/2024 11:5 8 AM CDT 12/09/2024 12:06 PM CDT us Marvel Glover MD LAB BLOOD ORDERABLES Final Resul t [facility] Lamar [facility] Department [place] [address] * (ABNORMAL) Differential, auto (12/09/2024 11:58 AM CDT) Pathologist [facility] Neutrophil abs 16.63(H) 1.50 - 6.50 K/cumm Imm gran abs 0.10 0.00 - 0.10 K/cumm [facility] Lymphocyte abs 1.06 0.80 - 3.30 K/cumm [facility] Monocyte abs 1.22(H) 0.20 - 0.80 K/cumm [facility] Eosinophil abs 0.03 0.00 - 0.50 K/cumm [facility] Basophil abs 0.03 0.00 - 0.10 K/cumm [facility] Neutrophil pct 87.1 % [facility] Comment: Interpretive Data Percent cell count reference ranges are not reported, since discordance with absolute values may lead to misinterpretation of CBC data. Current Interpretive Data was last revised on 2017. Imm gran pct 0.5 % [facility] Comment: Interpretive Data Percent cell count reference ranges are not reported, since discordance with absolute values may lead to misinterpretation of CBC data. Current Interpretive Data was last revised on 2017. Lymphocyte pct 5.6 % [facility] Comment: Interpretive Data Percent cell count reference ranges are not reported, since discordance with absolute values may lead to misinterpretation of CBC data. Current Interpretive Data was last revised on 2017. Monocyte pct 6.4 % [facility] Comment: Interpretive Data Percent cell count reference ranges are not reported, since discordance with absolute values may lead to misinterpretation of CBC data. Current Interpretive Data was last revised on 2017. Eosinophil pct 0.2 % [facility] Comment: Interpretive Data Percent cell count reference ranges are not reported, since discordance with absolute values may lead to misinterpretation of CBC data. Current Interpretive Data was last revised on 2017. Basophil pct 0.2 % [facility] Comment: Interpretive Data Percent cell count reference ranges are not reported, since discordance with absolute values may lead to misinterpretation of CBC data. Current Interpretive Data was last revised on 2017. Blood 12/09/2024 11:5 8 AM CDT 12/09/2024 12:06 PM CDT us Rasheeda Olmedo MD LAB BLOOD ORDERABLES Fi nal Result [facility] Department [place] [address] * (ABNORMAL) CBC with auto differential (12/09/2024 11:58 AM CDT) WBC 19.07(H) 3.80 - 9.90 K/cumm Hgb 16.2 13.0 - 17.5 g/dL [facility] Hct 45.2 38.9 - 50.3 % [facility] Plt 260 150 - 400 K/cumm [facility] MPV 9.1 9.1 - 12.[address] [facility] RBC 4.67 4.30 - 5.80 M/cumm [facility] MCV 96.8(H) 81.3 - 96.[address] [facility] MCH 34.7(H) 27.1 - 33.[address] [facility] MCHC 35.8(H) 32.3 - 35.7 g/dL [facility] RDW CV 13.2 11.1 - 14.9 % [facility] RDW SD 47.0 35.7 - 48.[address] [facility] NRBC abs 0.00 0.00 - 0.01 K/cumm [facility] Blood 12/09/2024 11:5 8 AM CDT 12/09/2024 12:06 PM CDT Rasheeda Olmedo MD LAB BLOOD ORDERABLES Fi nal Result Performing Organization Address City/[facility]/ZIP Co de Phone Number [facility] [place] [address] * aPTT (12/09/2024 11:58 AM CDT) aPTT 28 26 - 38 sec Comment: Interpretive Data Heparin therapeutic range: 66.0 - 100.0 seconds. Range based on correlation with therapeutic heparin activity range of 0.3 - 0.7 Units/mL. Current interpretive data was last revised on 2022. Blood 12/09/2024 11:5 8 AM CDT 12/09/2024 12:04 PM CDT Rasheeda Olmedo MD LAB BLOOD ORDERABLES Fi nal Result [facility] [place] [address] * Erythrocyte sedimentation rate (12/09/2024 11:58 AM CDT) Erythrocyte sedimentation rate 5 1 - 20 mm/hr Blood 12/09/2024 11:5 8 AM CDT 12/09/2024 12:10 PM CDT Marvel Glover MD LAB BLOOD ORDERABLES Final Resul t Performing Organization Address [facility] de Phone Number [facility] [email or web address] [address] * Protime-INR (12/09/2024 11:58 AM CDT) PT 10.8 10.2 - 13.5 sec INR 0.95 0.90 - 1.[address] [facility] Comment: Interpretive data Oral anticoagulant therapeutic [...] ORDERABLES Fi nal Result Performing Organization Address [facility] de Phone Number [facility] [email or web address] [address] * Type and screen (12/09/2024 11:58 AM CDT) ABO Rh O Negative Nohelia, indirect Negative [facility] Blood 12/09/2024 11:5 8 AM CDT 12/09/2024 12:22 PM CDT Narrative [facility] - 12/09/2024 1:18 PM CDT Has the patient had Daratumumab or Isatuximab in the past 6 months?->Unknown Rasheeda Olmedo MD LAB BLOOD BANK TEST ORD ERABLES Final Result Performing Organization Address [facility] Co de Phone Number [facility] [email or web address] [address] * CRP (acute phase) (12/09/2024 11:58 AM CDT) Pathologist [facility] CRP 3.4 <=10.0 mg/L Blood 12/09/2024 11:5 8 AM CDT 12/09/2024 12:06 PM CDT Marvel Glover MD LAB BLOOD ORDERABLES Final Resul t Performing Organization Address [facility] de Phone Number [facility] [email or web address] [address] * Ethanol (12/09/2024 11:58 AM CDT) Pathologist [facility] Ethanol <10 <=10 mg/dL Comment: Interpretive Data Legal limit of intoxication > or = 80 mg/dL Levels > or = 400 mg/dL are potentially TOXIC. Current interpretive data was last revised on 2018. Blood 12/09/2024 11:5 8 AM CDT 12/09/2024 12:06 PM CDT Rasheeda Olmedo MD LAB BLOOD ORDERABLES Fi nal Result Performing Organization Address [facility] Co de Phone Number [facility] [email or web address] [address] * (ABNORMAL) Comprehensive metabolic panel (12/09/2024 11:58 AM CDT) Pathologist [facility] Sodium 136 135 - 145 mmol/L Potassium, pl 4.3 3.3 - 4.9 mmol/L [facility] Chloride 101 97 - 110 mmol/L [facility] CO2 21(L) 22 - 32 mmol/L [facility] Anion gap 14 2 - 15 mmol/L [facility] BUN 17 6 - 25 mg/dL [facility] Creatinine 0.75(L) 0.80 - 1.30 mg/dL [facility] Glucose 105 70 - 199 mg/dL [facility] Comment: Interpretive Data Fasting glucose >/= [...] 2022. Calcium 9.1 8.5 - 10.3 mg/dL [facility] Bilirubin, total 0.7 0.1 - 1.2 mg/dL [facility] Protein, pl 7.9 6.5 - 8.5 g/dL [facility] Albumin 4.2 3.5 - 5.0 g/dL [facility] Alk phos 81 40 - 130 Units/L [facility] ALT 40 7 - 55 Units/L [facility] AST 38 10 - 50 Units/L [facility] Blood 12/09/2024 11:5 8 AM CDT 12/09/2024 12:06 PM CDT Marvel Glover MD LAB BLOOD ORDERABLES Final Resul t [facility] Department [place] [address] from Last 3 Months Insurance [facility] Advance Directives For more information, please contact: [phone] * Full Code (Latest Code Status on File) Date Activated Date Inactivated Comments 12/10/2024 9:10 AM 12/10/2024 8:52 PM Care Teams Contracting Support Specialist Relationship Specialty Start Date End Date Anastacio Guido MD PCP - General Family Medicine 09/01/22
[2025-02-17 09:19] LABS: Hemoglobin A1C 5.5 % (<5.7)
[2025-02-17 09:32] LABS: Alanine Aminotransferase 33 U/L (6-50); Albumin Level 4.3 g/dL (3.5-5.1); Alkaline Phosphatase 85 U/L (38-126); Anion Gap 6 mmol/L (4-12); Aspartate Amino Transferase 32 U/L (17-59); Bilirubin,Total 0.5 mg/dL (0.2-1.3); Blood Urea Nitrogen 18 mg/dL (9-20); Calcium 9.1 mg/dL (8.4-10.2); Carbon Dioxide 26 mmol/L (22-30); Chloride 107 mmol/L (98-107); Cholesterol 208 mg/dL (0-200); Estimated Glomerular Filt Rate > 60; Glucose 107 mg/dL (65-110); HDL Direct 78 mg/dL; Potassium 4.7 mmol/L (3.4-5.0); Sodium 139 mmol/L (137-145); Total Protein 7.9 g/dL (6.3-8.2); Triglycerides 45 mg/dL (<150)
[2025-02-17 10:07] LABS: Prostate Specific Antigen 1.7 ng/mL (< OR = 4.0)
== END 2025-02-17 08:56 | disposition home or self-care (01) ==
PROVIDERS: PCP Family Medicine; Visit Provider Physician Assistant Medical
DX: Z13.220 Encounter for screening for lipoid disorders (principal); Z12.5 Encounter for screening for malignant neoplasm of prostate; E78.5 Hyperlipidemia, unspecified; G47.00 Insomnia, unspecified; Z72.0 Tobacco use; Z82.49 Family history of ischemic heart disease and other diseases of the circulatory system
CPT/HCPCS: 36415; 80053; 80061; 83036; 83695; 84153; G0103